=== PATIENT | male | born 1975 | race Asian ===

== ENCOUNTER 2017-02-25 13:32 | Observation (INO) | payer MEDICAID, OTHER ==
--- NOTE | 2017-02-25 13:53 | CPEKG ---
Heart Rate: 102 RR Interval: 588 P-R Interval: 168 QRSD Interval: 90 QT Interval: 360 QTC Interval: 469 P [place]: 60 QRS [place]: -52 T Wave [place]: 61 EKG Severity - ABNORMAL ECG - EKG Impression: SINUS TACHYCARDIA EKG Impression: LEFT ANTERIOR FASCICULAR BLOCK EKG Impression: CONSIDER ANTERIOR INFARCT Electronically Signed By: Yady Hadley 25-Feb-2017 14:03:44
--- NOTE | 2017-02-25 14:12 | EDPHY ---
H & P Stated Complaint: cardiac - Personal History Current Tetanus Diphtheria and Acellular Pertussis (TDAP): Unsure - Medical/Surgical History Hx Asthma: No Hx Chronic Respiratory Disease: No Hx Diabetes: Yes Hx Cardiac Disease: No Hx Renal Disease: No Hx Cirrhosis: No Hx Alcoholism: No Hx HIV/AIDS: No Hx Splenectomy or Spleen Trauma: No Other PMH: MO 2008, obesity, DM II, smoker - Social History Smoking Status: Heavy smoker Time Seen by Provider: 02/25/17 14:01 HPI/ROS: CHIEF COMPLAINT: Cough, shortness of breath HISTORY OF PRESENT ILLNESS: This patient is an obese 41 year old male with history of MO complaining of cough and shortness of breath onset two weeks ago. He was evaluated earlier today by the [facility], who referred him to the emergency department for cardiac evaluation due to their exam findings. He thought he had a respiratory infection a couple weeks ago, with a cough and chest congestion. He felt it was difficult to catch his breath and noted a productive cough with "red flecks". These red flecks resolved one week ago. He feels his cough has intensified over last couple days, and he lost his voice yesterday, prompting him to visit primary care today. He notes increased shortness of breath with exertion. He denies having a sore throat and runny nose. He denies fever, current chest discomfort, vomiting, wheezes, or other associated symptoms. He denies history of pneumonia. Of not, the patient has history of myocardial infarction nine years ago. This presented as chest pressure, shortness of breath, and a pain in his left forefinger and thumb. He is no longer taking any medications related to this event. He has no similar symptoms currently. The patient has diabetes and is a current smoker, and has personal and family history of CAD. REVIEW OF SYSTEMS: A 10 point review of systems was performed and is negative with the exception of the elements mentioned in the history of present illness. (Yady Hadley) - Medical/Surgical History PMH: Diabetes Mellitus Type II, Myocardial infarction 2007 (Yady Hadley) - Social History Additional Social History: Lives in [place]. Single. Roommate at bedside. (Yady Hadley) - Physical Exam Exam: General Appearance: Alert, no distress Eyes: Pupils equal and round, no conjunctival pallor or injection ENT, Mouth: Mucous membranes moist Neck: Normal inspection Respiratory: Lungs are clear to auscultation Cardiovascular: Regular rate and rhythm Gastrointestinal: Abdomen is soft and non- tender Neurological: A&O, nonfocal, normal gait Skin: Warm and dry, no rash Extremities: Nontender, no pedal edema Psychiatric: Mood and affect normal (Yady Hadley) Constitutional: Initial Vital Signs Temperature (C) 36.8 C 02/25/17 13:38 Heart Rate 102 H 02/25/17 13:38 Respiratory Rate 18 02/25/17 13:38 Blood Pressure 154/110 H 02/25/17 13:38 O2 Sat (%) 96 02/25/17 13:38 O2 Delivery Mode Room Air Allergies/Adverse Reactions: No Known Drug Allergies Allergy (Verified 02/25/17 13:41) Home Medications: Medication Instructions Recorded Aspirin [Aspirin 325 mg (*)] 325 mg PO DAILY PRN 02/25/17 Aspirin EC [Aspirin EC 81 mg (*)] 81 mg PO DAILY #1 tab 02/26/17 Atorvastatin Calcium [Lipitor 40 40 mg PO DAILY #30 tab 02/26/17 mg (*)] Medical Decision Making - Diagnostics EKG Interpretation: EKG interpreted by me reveals sinus tachycardia, rate 102, poor R-wave progression, no ST or T segment changes. (Yady Hadley) ED Course/Re-evaluation: This patient presents with a 3 week history of productive cough and shortness of breath, now with a hoarse voice secondary to frequent coughing. Stat EKG is unremarkable. Most likely he has either acute bronchitis or pneumonia. However, given heart rate greater than 100 and history of hemoptysis, I will check a D-dimer. Chest x-ray was ordered. EKG reveals no evidence of ischemia. D-dimer is elevated and chest x-ray reveals no evidence of pneumonia. CT pulmonary angiogram ordered to rule out pulmonary embolism. Troponin elevated ( indeterminant range). The hospitalist service was consulted for admission. Signed over to Dr. Medley to check CTA results. (Yady Hadley) Differential Diagnosis: Differential diagnosis includes though it is not limited to pneumonia, pneumothorax, pulmonary embolism, aortic dissection, pericarditis, acute coronary syndrome. (Yady Hadley) Other Provider: Care assumed from Dr. Hadley at 3:[address] reported to me by Dr. Cardozo shows patchy bilateral ground-glass infiltrates but no pulmonary embolism. Discussed with Dr. Jones after he personally evaluated the patient. He considers bacterial pneumonia unlikely, supportive care at this time. Respiratory panel ordered to check for influenza. I did not personally evaluate the patient. (Sachin Medley) - Data Points Laboratory Results: Laboratory Results 02/25/17 14:20 02/25/17 14:20 Medications Given: Discontinued Medications Albuterol/Ipratropium (Duoneb) 3 ml IH QID [facility] Stop: 08/24/17 20:59 Last Admin: 02/26/17 15:29 Dose: Not Given Aspirin Buffered (Aspirin Ec) 325 mg PO EDNOW ONE Stop: 02/25/17 16:13 Last Admin: 02/25/17 16:38 Dose: Not Given Guaifenesin (Mucinex) 1,200 mg PO BID [facility] Stop: 08/24/17 16:29 Last Admin: 02/26/17 09:04 Dose: 1,200 mg Sodium Chloride (Ns) 1,000 mls @ 0 mls/hr IV ONCE ONE PRN Reason: Wide Open Stop: 02/25/17 15:03 Last Admin: 02/25/17 15:04 Dose: 1,000 mls Insulin Human Lispro (Humalog Lispro) 0 unit SC TIDMEAL JERI PRN Reason: Protocol Stop: 08/24/17 17:59 Last Admin: 02/26/17 14:39 Dose: Not Given Departure - Departure Disposition: [facility] Acute Clinical Impression: Dyspnea on exertion, Bronchitis Condition: Fair Report Scribed for: Yady Hadley Report Scribed by: Josiane Gurrola Date of Report: 02/25/17 Time of Report: 14:12 Physician Review and Approval Statement: 02/25/17 14:12 Portions of this note were transcribed by a medical technologist chief. I personally performed a history, physical exam, medical decision making, and confirmed accuracy of information the transcribed note. (Yady Hadley)
[2017-02-25 14:32] LABS: % IMMATURE GRANULYOCYTES 0.1 % (0.0-1.1); ABSOLUTE IMMATURE GRANULOCYTES 0.01 10^3/uL (0.00-0.10); ADD DIFF? NO; ADD MORPH? NO; ADD SCAN? NO; ATYPICAL LYMPHOCYTE FLAG 40 (0-99); FRAGMENT RBC FLAG 0 (0-99); HEMATOCRIT 41.4 % (40.0-51.0); HEMOGLOBIN 14.5 g/dL (13.7-17.5); LEFT SHIFT FLG 0 (0-99); LIPEMIA HEMOLYSIS FLAG 90 (0-99); MEAN CELL HEMOGLOBIN 29.7 pg (27.9-34.1); MEAN CELL VOLUME 84.7 fL (81.5-99.8); MEAN PLATELET VOLUME 9.8 fL (8.7-11.7); PLATELET CLUMPS FLAG 0 (0-99); PLATELET COUNT 295 10^3/uL (150-400); RED BLOOD CELL COUNT 4.89 10^6/uL (4.40-6.38); RED CELL DISTRIBUTION WIDTH 12.3 % (11.5-15.2)
[2017-02-25 14:50] LABS: ANION GAP 13 mEq/L (8-16); CARBON DIOXIDE 24 mEq/l (22-31); CHLORIDE 102 mEq/L (97-110); CREATININE 0.8 mg/dL (0.7-1.3); GLOMERULAR FILTRATION RATE > 60; GLUCOSE 286 mg/dL (70-100); POTASSIUM 4.9 mEq/L (3.5-5.2); SODIUM 139 mEq/L (134-144)
[2017-02-25] MEDS ORDERED: IOPAMIDOL (ISOVUE 370) 100 ML BTL IV ONE (14:58)
[2017-02-25 15:02] LABS: TROPONIN I 0.109 ng/mL (0.000-0.034)
[2017-02-25] MEDS ORDERED: NS 1,000 ML IV ONE (15:02)
[2017-02-25] MEDS ORDERED: ONDANSETRON 4 MG/2 ML VIAL IVP PRN (16:11)
[2017-02-25] MEDS ORDERED: ONDANSETRON DISINTEGRATING 4 MG TAB PO PRN (16:11)
[2017-02-25] MEDS ORDERED: ACETAMINOPHEN 325 MG TAB PO PRN (16:11)
[2017-02-25] MEDS ORDERED: TEMAZEPAM 15 MG CAP PO PRN (16:11)
[2017-02-25] MEDS ORDERED: ASPIRIN EC 325 MG TAB PO ONE (16:12)
[2017-02-25] MEDS ORDERED: ASPIRIN 325 MG TAB PO PRN (16:13)
[2017-02-25] MEDS ORDERED: D50W 25 GM/50 ML SYR IVP PRN (16:17)
--- NOTE | 2017-02-25 17:42 | GHP ---
[f rep st] HISTORY AND PHYSICAL DATE OF ADMISSION: 02/25/2017 CHIEF COMPLAINT: Cough. HISTORY OF PRESENT ILLNESS: This is a 41-year-old man with a history of coronary artery disease, as well as an RI, who presents after being sent in from [facility] with a cough. This started abou t 2 weeks ago. He initially had some very mild hemoptysis with red streaks. He had some fevers, as well as some sweats early on in the disease course, but not for the past few days. He has been produ cing a lot of sputum. He had a little bit of chest pain when he was coughing significantly. He had an RI in 2007, at which time his symptoms were significant chest pressure radiating down his left arm . This does not feel at all like that. Other people around him are not really sick. He has not been taking really any medications since about 2010, when he tells me that his financial s ituation changed. He has not seen a activities assistant. PAST MEDICAL/SURGICAL HISTORY: 1. Diabetes. 2. Coronary artery disease, status post RI in 2007 where he received PCI. MEDICATIONS: Please see medication reconciliation. ALLERGIES: No known drug allergies. SOCIAL HISTORY: Has a roommate. He does smoke. He does not drink. FAMILY HISTORY: Reviewed and noncontributory. REVIEW OF SYSTEMS: 10-point review of systems is conducted and is negative, except per HPI. PHYSICAL EXAMINATION: VITAL SIGNS: Blood pressure 128/98, heart rate 84, respiration rate 18, satur ating 98% on room air. Temperature is 36.7. GENERAL: The patient appears mildly uncomfortable, sit ting up in bed, conversant. HEENT: Shows him to be normocephalic, atraumatic. CARDIOVASCULAR: Reg ular rate and rhythm. No murmurs, rubs, or gallops. PULMONARY: Shows him to not have any respirato ry distress. His lungs are clear to auscultation bilaterally. ABDOMEN: Soft, nontender, nondistend ed. SKIN: No rash. : No Moore. NEUROLOGIC: Alert and oriented x3. He is moving all extremiti es. PSYCHIATRIC: Normal mood and affect. LABORATORY DATA: CBC is normal. D-dimer 0.9. Basic metabolic panel shows a glucose of 286. Tropon in 0.109, BNP is 781. Influenza A and B PCR are pending. DATA: 1. I discussed this with Dr. Hadley, will admit to the PCU. 2. Preliminary report on CT angiogram shows no clot. It does show some ground-glass opacities in bi lateral lungs. 3. EKG, which I personally viewed and interpreted, shows him to be in sinus rhythm. He has Q-waves in 2, 3, and F. He has incomplete right bundle-branch. There are no ST changes. No significant T-w ave inversions. IMPRESSION AND PLAN: A 41-year-old man, history of coronary artery disease, presents with respirator y illness and mildly elevated troponin. 1. Respiratory illness: I have sent an influenza PCR. He has no white count. He is afebrile, I do not think that this represents a bacterial pneumonia. I will also send a procalcitonin. I think it is reasonable to hold on antibiotics right now, monitor him very closely. If he has influenza we wi ll start Tamiflu. If Procalcitonin comes back elevated, we will treat for presumptive bacterial pneu monia. Otherwise, he will get inhalers and Mucinex. Could consider steroids if he is not improving. 2. Elevated troponin in the setting of a history of coronary artery disease: I do suspect that this is demand. I have carefully reviewed his EKG. He does have some abnormalities, but I do not think that there are new. There are no acute ischemic changes noted. Will give him an aspirin now and patricia nd his troponins. If these are rapidly rising we will involve Cardiology. Otherwise, I have checked lipids for the morning. 3. Diabetes: He is hyperglycemic. He is not taking any medications. We will check his glucoses, a nd provide him with a sliding scale insulin. I will also order an A1c.. /[id number]/MODL
[2017-02-25] MEDS: guaiFENesin 600 MG TAB.ER PO SCH ×2 (18:31→20:28)
[2017-02-25] MEDS: INSULIN LISPRO 100 UNIT/ML SC SCH (18:32)
[2017-02-25] MEDS ORDERED: DOXYCYCLINE HYCLATE 100 MG CAP/TAB PO SCH (19:30)
[2017-02-25] MEDS: IPRATROPIUM/ALBUTEROL 3 ML DEYVIAL IH SCH (20:44)
[2017-02-26 04:51] LABS: % IMMATURE GRANULYOCYTES 0.4 % (0.0-1.1); ABSOLUTE IMMATURE GRANULOCYTES 0.03 10^3/uL (0.00-0.10); ADD DIFF? NO; ADD MORPH? NO; ADD SCAN? NO; ATYPICAL LYMPHOCYTE FLAG 30 (0-99); FRAGMENT RBC FLAG 20 (0-99); HEMATOCRIT 39.4 % (40.0-51.0); HEMOGLOBIN 13.3 g/dL (13.7-17.5); LEFT SHIFT FLG 10 (0-99); LIPEMIA HEMOLYSIS FLAG 90 (0-99); MEAN CELL HEMOGLOBIN 28.8 pg (27.9-34.1); MEAN CELL HEMOGLOBIN CONCENTR. 33.8 g/dL (32.4-36.7); MEAN CELL VOLUME 85.3 fL (81.5-99.8); MEAN PLATELET VOLUME 9.9 fL (8.7-11.7); PLATELET CLUMPS FLAG 20 (0-99); PLATELET COUNT 282 10^3/uL (150-400); RED BLOOD CELL COUNT 4.62 10^6/uL (4.40-6.38); RED CELL DISTRIBUTION WIDTH 12.4 % (11.5-15.2)
[2017-02-26 05:03] LABS: ALANINE AMINOTRANSFERASE 50 IU/L (21-72); ALBUMIN 3.5 g/dL (3.5-5.0); ALKALINE PHOSPHATASE 66 IU/L (38-126); ANION GAP 11 mEq/L (8-16); ASPARTATE AMINOTRANSFERASE 22 IU/L (17-59); BILIRUBIN,TOTAL 0.6 mg/dL (0.1-1.4); CALCIUM 8.9 mg/dL (8.5-10.4); CARBON DIOXIDE 20 mEq/l (22-31); CHLORIDE 106 mEq/L (97-110); CHOLESTEROL 198 mg/dL (140-200); CHOLESTEROL/HDL RATIO 8.61 RATIO (1.00-4.97); CREATININE 0.7 mg/dL (0.7-1.3); GLOMERULAR FILTRATION RATE > 60; GLUCOSE 241 mg/dL (70-100); HIGH DENSITY LIPOPROTEIN 23 mg/dL (40-65); LDL/HDL RATIO 5.91 RATIO (1.00-3.64); LOW DENSITY LIPOPROTEIN 136 mg/dL (70-100); NON-HIGH DENSITY LIPOPROTEIN 175 mg/dL (90-129); POTASSIUM 4.5 mEq/L (3.5-5.2); SODIUM 137 mEq/L (134-144); TOTAL PROTEIN 6.6 g/dL (6.3-8.2); TRIGLYCERIDE 196 mg/dL (40-150); VERY LOW DENSITY LIPOPROTEINS 39 mg/dL (8-25)
[2017-02-26] MEDS: IPRATROPIUM/ALBUTEROL 3 ML DEYVIAL IH SCH ×3 (06:00→15:29)
[2017-02-26] MEDS ORDERED: ASPIRIN EC 81 MG TAB PO SCH (09:00)
[2017-02-26] MEDS: INSULIN LISPRO 100 UNIT/ML SC SCH ×2 (09:04→14:39)
[2017-02-26] MEDS: guaiFENesin 600 MG TAB.ER PO SCH (09:04)
[2017-02-26] MEDS ORDERED: REGADENOSON 0.4 MG/5 ML SYR IVP ONE (12:23)
--- NOTE | 2017-02-26 13:24 | CPR ---
[f rep st] NONINVASIVE CARDIAC PROCEDURE REPORT DATE OF PROCEDURE: 02/26/2017 TEST PERFORMED: Exercise nuclear stress test. INDICATION: The patient is a 41-year-old male who presented to the hospital complaining of shortness of breath which was fairly pronounced for a few days prior to admission. He has also noted some cristina rtness of breath a few weeks prior to admission. He was diagnosed with bronchitis. His EKG was abno rmal with multiple risk factors for coronary disease including new-onset diabetes, ongoing tobacco us e, and family history of CAD. His father was diagnosed with coronary disease in his late 40s. DESCRIPTION OF PROCEDURE: Consent was obtained and the patient was placed on continuous telemetry. His resting EKG revealed normal sinus rhythm with a heart rate of 100. He has T-wave inversion in th e inferior leads, concerning for ischemia. The patient walked on the treadmill for 6 minutes. He di d complain of fairly significant shortness of breath beginning at 4 minutes of exercise. He was able to reach his target heart rate with his heart rate peaking at 144 beats per minute. He denied any c hest discomfort with exertion. He remained in normal sinus rhythm throughout the study. His T-waves improved with initial exertion and remained upright throughout the study. He had nonspecific ST-T w ave changes diffusely with exertion. His blood pressure at rest was 128/80, it peaked at 152/80, and returned to baseline within 5 minutes of recovery. PLAN: Await nuclear images. /[id number]/MODL
[2017-02-26 16:21] VITALS: BP 139/100; PULSE 102; RESP 11; TEMP 98; O2SAT 98
--- NOTE | 2017-02-26 17:15 | GCON ---
[f rep st] CONSULTATION CARDIAC CONSULTATION DATE OF CONSULTATION: 02/26/2017 CHIEF COMPLAINT: Shortness of breath and cough. HISTORY OF PRESENT ILLNESS: The patient is a 41-year-old male with a history of coronary artery dise ase and [place] with stenting in 2007. His risk factors for coronary disease were treated with medical th erapy until a few years ago, when his financial situation changed and he was unable to afford the [employer]. He felt well until approximately 2 weeks ago, when he developed a productive cough and cristina rtness of breath. His symptoms persisted and therefore, he presented to his primary care physician's office. He was found to have an abnormal EKG and referred to the hospital. His initial troponin wa s elevated at 0.1 and has remained flat throughout his hospitalization. He had a nuclear stress test which was abnormal showing a large apical and moderate inferolateral infarct with deepak-infarct ische ирина. His ejection fraction was mildly reduced at 46%. He had a pulmonary CT angiogram which was neg ative for pulmonary embolus. The patient is active, walking to the bus on a regular basis. He denies any exertional chest discomf ort or dyspnea on exertion. At the time of his [place], he presented with severe chest pressure and left arm and finger discomfort. He denies any recurrent anginal type pain. His risk factors for coronary artery disease include newly diagnosed diabetes, hyperlipidemia, ongoin g tobacco use, and family history of premature coronary artery disease. PAST MEDICAL HISTORY: Diabetes. Hyperlipidemia. Coronary artery disease with myocardial infarction and stenting in 2007. The location of the stent is unknown. FAMILY HISTORY: His father has history of coronary disease which began in his late 40s. SOCIAL HISTORY: He currently works for [employer]. He does smoke 1 pack of cigarettes a day for the past 2 0 years. MEDICATIONS ON ADMISSION: None. ALLERGIES: No known drug allergies. REVIEW OF SYSTEMS: Negative except for what is stated in the H and P. PHYSICAL EXAMINATION: GENERAL: Patient appears in no acute distress. VITAL SIGNS: Blood pressure 139/100, heart rate 102, oxygen saturation 98% on room air, afebrile. NECK: No carotid bruits or JV D present. LUNGS: Clear to auscultation. No wheezes, rhonchi, or crackles auscultated. CARDIAC: Regular rate and rhythm without any murmurs, rubs, or gallops appreciated. ABDOMEN: Soft, nontender , nondistended. Bowel sounds present. EXTREMITIES: Palpable pulses bilaterally without any evidenc e of edema. NEUROLOGIC: Nonfocal. SKIN: No obvious rashes or ecchymosis identified. PSYCHIATRIC: Mood and affect appropriate. LABORATORY: Troponin 0.107, 0.106, 0.101. Triglycerides 196, LDL 136, HDL 23. D-dimer 0.91. CBC i nitially within normal limits, now mildly reduced hemoglobin and hematocrit. DIAGNOSTIC STUDIES: Nuclear stress test showed reduced ejection fraction of 46% with inferior latera l hypokinesis. There was a large apical and moderate inferior lateral infarcts with probable ischemi a. A pulmonary CT angiogram was negative for pulmonary embolus. There are bilateral focal ground-gl ass areas suspicious for pneumonia or possibly a viral versus bacterial infection. EKG shows inferio r Q-waves as well as poor R-wave progression, and diffuse T-wave flattening. IMPRESSION: The patient is a 41-year-old male with a history of coronary disease. He was found to h ave an abnormal nuclear stress test and mildly elevated troponins. PLAN: The patient presented to the hospital with bronchitis which is currently being treated. He wa s found to have an abnormal EKG which prompted a nuclear stress test. He had fairly poor exercise to [facility] for a male of 41 years, only walking for 6 minutes. His exercise ability was compromised by his pulmonary disease. The nuclear images did show a large apical and moderate inferior lateral infa rct with deepak-infarct ischemia. His ejection fraction was also reduced at 46%. He denies any curren t symptoms of angina. His troponin was mildly elevated but flat throughout his hospitalization. I d o not think this represents acute coronary syndrome. I think he likely has some degree of coronary d isease and likely obstructive disease which should be further assessed. An angiogram was recommended today, but the patient refused intervention at this time. He has agreed to begin medical therapy for coronary disease and follow up at our office in 2 weeks to schedule an angiogram at that time. He will begin aspirin 162 mg daily. He will also be started on Lipitor 40 mg daily. His LDL is currently elevated at 136. I would like to start a beta jaron bu t given his underlying pulmonary disease, I will hold off for now. I will plan to initiate this at h is office visit. Smoking cessation was discussed today. He is also diabetic and not currently on me dical therapy. He will need aggressive management of his diabetes. He is currently scheduled to follow up with myself on March 10 at 11:45 in our office. If he dev elops chest pressure, tightness, or dyspnea on exertion prior to his office visit, he knows to procestew d to the emergency department. /[id number]/MODL
--- NOTE | 2017-02-26 20:36 | GDS ---
[f rep st] DISCHARGE SUMMARY DISCHARGE DIAGNOSES: 1. Viral pneumonia. 2. Mildly positive troponin with positive nuclear stress test. 3. History of coronary artery disease, status post stenting many years ago. HISTORY: This is a 41-year-old male who has a history of coronary artery disease. He presented with acute shortness of breath coinciding with a viral illness and had a mildly elevated troponin. HOSPITAL COURSE: Patient was admitted. Procalcitonin was normal, and thus he was not started on ant ibiotics. This was felt to be a viral process. He did have flat troponins at 0.1. Because of his h istory of coronary artery disease and abnormal troponins he underwent stress testing, which did show several large perfusion defects. The patient was counseled to undergo a heart catheterization but he did not want to do that at this time. Cardiology was consulted and they will follow with him closel y. He has been started on Lipitor and aspirin. /[id number]/MODL
[2017-02-27] MEDS ORDERED: ATORVASTATIN CALCIUM 40 MG TAB PO SCH (09:00)
== END 2017-02-26 16:50 | disposition home or self-care (01) ==
LOC: F2W 16:43
PROVIDERS: ADMIT Student in an Organized Health Care Education/Training Program; ATTEND Internal Medicine
DX: J12.9 Viral pneumonia, unspecified (principal); R79.9 Abnormal finding of blood chemistry, unspecified; R94.39 Abnormal result of other cardiovascular function study; E11.65 Type 2 diabetes mellitus with hyperglycemia; I25.10 Atherosclerotic heart disease of native coronary artery without angina pectoris; F17.210 Nicotine dependence, cigarettes, uncomplicated; I25.2 Old myocardial infarction; E66.9 Obesity, unspecified; E78.5 Hyperlipidemia, unspecified; Z95.5 Presence of coronary angioplasty implant and graft; Z82.49 Family history of ischemic heart disease and other diseases of the circulatory system
CPT/HCPCS: 71020; 71275; 78452; 93005; 93017; A9500; G0378; J1815; J2785; Q9967

== ENCOUNTER 2017-03-11 08:56 | Inpatient (IN) | payer MEDICAID ==
[2017-03-11] MEDS ORDERED: diphenhydrAMINE 25 MG CAP PO ONE (09:04)
[2017-03-11] MEDS ORDERED: NS 1,000 ML IV ONE (09:04)
[2017-03-11] MEDS ORDERED: FAMOTIDINE 20 MG TAB PO ONE (09:04)
[2017-03-11] MEDS ORDERED: DIAZEPAM 5 MG TAB PO ONE (09:04)
[2017-03-11] MEDS ORDERED: ASPIRIN EC 325 MG TAB PO ONE (09:04)
--- NOTE | 2017-03-11 09:27 | CPEKG ---
Heart Rate: 93 RR Interval: 645 P-R Interval: 164 QRSD Interval: 90 QT Interval: 368 QTC Interval: 458 P [place]: 65 QRS [place]: -60 T Wave [place]: 26 EKG Severity - ABNORMAL ECG - EKG Impression: SINUS RHYTHM EKG Impression: PROBABLE LEFT ATRIAL ABNORMALITY EKG Impression: LEFT ANTERIOR FASCICULAR BLOCK EKG Impression: POSSIBLE HYPERACUTE T WAVES SUGGESTING ANTERIOR INJURY Electronically Signed By: Vivienne Howell 11-Mar-2017 09:57:48
--- NOTE | 2017-03-11 09:35 | PDHPUP ---
History & Physical Update H&P update statement: This history and physical update is based on an assessment of the patient which was completed after admission or registration (within 24 hours), but prior to the surgery/procedure. H&P update: H&P reviewed & patient examined, no change in patient's condition since H&P completed (Pt with shortness of breath CCS and NYHA both class III, high risk stress test, DM untreated)
--- NOTE | 2017-03-11 09:36 | PDPROPOC ---
Sedation Plan of Care Sedation Plan of Care: vital signs stable, mental status noted, patient educated of risks, benefits, alternatives, patient can tolerate sedation ASA Classification: ASA 3 Planned drugs: fentanyl, midazolam (possible Etomidate) Mallampati Score: Class 3 Mallampati Reference Image: Patient passed 3-3-2 rule?: Yes
[2017-03-11 09:49] LABS: % IMMATURE GRANULYOCYTES 0.3 % (0.0-1.1); ABSOLUTE IMMATURE GRANULOCYTES 0.02 10^3/uL (0.00-0.10); ADD DIFF? NO; ADD MORPH? NO; ADD SCAN? NO; ATYPICAL LYMPHOCYTE FLAG 30 (0-99); FRAGMENT RBC FLAG 0 (0-99); HEMATOCRIT 43.1 % (40.0-51.0); HEMOGLOBIN 15.1 g/dL (13.7-17.5); LEFT SHIFT FLG 0 (0-99); LIPEMIA HEMOLYSIS FLAG 90 (0-99); MEAN CELL VOLUME 82.7 fL (81.5-99.8); MEAN PLATELET VOLUME 10.4 fL (8.7-11.7); PLATELET CLUMPS FLAG 0 (0-99); PLATELET COUNT 183 10^3/uL (150-400); RED BLOOD CELL COUNT 5.21 10^6/uL (4.40-6.38); RED CELL DISTRIBUTION WIDTH 12.7 % (11.5-15.2)
[2017-03-11 09:59] LABS: INR 0.97 (0.83-1.16); PROTIME(PATIENT) 12.8 SEC (12.0-15.0)
[2017-03-11 10:11] LABS: ANION GAP 11 mEq/L (8-16); CALCIUM 9.5 mg/dL (8.5-10.4); CARBON DIOXIDE 20 mEq/l (22-31); CHLORIDE 106 mEq/L (97-110); CHOLESTEROL 164 mg/dL (140-200); CHOLESTEROL/HDL RATIO 5.13 RATIO (1.00-4.97); CREATININE 0.8 mg/dL (0.7-1.3); GLOMERULAR FILTRATION RATE > 60; GLUCOSE 314 mg/dL (70-100); HIGH DENSITY LIPOPROTEIN 32 mg/dL (40-65); LOW DENSITY LIPOPROTEIN 96 mg/dL (70-100); MAGNESIUM 1.8 mg/dL (1.6-2.3); NON-HIGH DENSITY LIPOPROTEIN 132 mg/dL (90-129); POTASSIUM 4.2 mEq/L (3.5-5.2); SODIUM 137 mEq/L (134-144); TRIGLYCERIDE 184 mg/dL (40-150); VERY LOW DENSITY LIPOPROTEINS 36 mg/dL (8-25)
[2017-03-11] MEDS ORDERED: MIDAZOLAM 2 MG/2 ML VIAL ONE ×2 (10:57→11:50)
[2017-03-11] MEDS ORDERED: LIDOCAINE 1% 300 MG/30 ML SDV ONE (10:57)
[2017-03-11] MEDS ORDERED: fentaNYL 100 MCG/2 ML INJ ONE (10:57)
[2017-03-11] MEDS ORDERED: IOPAMIDOL (ISOVUE-370) 150 ML BTL IV ONE (10:58)
[2017-03-11] MEDS ORDERED: ONDANSETRON DISINTEGRATING 4 MG TAB PO PRN (12:25)
[2017-03-11] MEDS ORDERED: NITROGLYCERIN 0.4 MG BTL SL PRN (12:25)
[2017-03-11] MEDS ORDERED: ONDANSETRON 4 MG/2 ML VIAL IVP PRN (12:25)
[2017-03-11] MEDS ORDERED: OXYCODONE/APAP 5/325 TAB PO PRN (12:25)
[2017-03-11] MEDS ORDERED: ACETAMINOPHEN 325 MG TAB PO PRN (12:25)
[2017-03-11] MEDS ORDERED: ATROPINE SULFATE 1 MG/10 ML SYR IVP PRN (12:25)
[2017-03-11] MEDS ORDERED: NS 1,000 ML IV SCH (12:30)
[2017-03-11] MEDS ORDERED: ATROPINE SULFATE 1 MG/10 ML SYR ONE (12:33)
--- NOTE | 2017-03-11 12:37 | POSTOPPROG ---
Post Op Note Date of Operation: 03/11/17 Surgeon: James Funez Pre-op Diagnosis: ischemic cm diabetes mellitus Post-op Diagnosis: severe 3Vdisease, CAD, DM Indication: abnormal nuclear stress test Procedure: RHC, LHC LVG AND COR ANGIO Findings: PLEASE DICTATED REPORT Inf/Abcess present in the surg proc area at time of surgery?: No Depth: Superfical (Skin SQ) Complications: NONE
--- NOTE | 2017-03-11 12:41 | PDDXCAT ---
Diagnostic Cath Note - . Date: 03/11/17 Armor Senior Sergeant: Dee Dee Indication: High-risk criteria on noninvasive testing (choose option below) High-risk criteria on non-invasive testing: stress-induced moderate-size multiple perfusion defects - Procedure Access: right groin Procedure: left heart catheterization, coronary angiography, left ventriculogram , right heart catheterization - Materials Left Heart Cath size: 6F Left Heart Cath materials: standard multipack (JL4, JR4, pigtail) Right Heart Cath size: 7F Right Heart Cath materials: PWP catheter - Findings-Left Heart Catheterization LM: 8MM SUMAN III IN SIZE TRIFURCATES IN LAD AND RAMUS CIRCUFLEX SYSTEM LAD: 2.5mm IN SIZE. 100% OCCLUDED AFTER THE FIRST MAJOR DIAGONAL WITH EVIDENCE OF WEAK LEFT TO LEFT COLLATERALS. LCX: 100% OCCLUDED SUMAN 0 FLOW. PREVIOUSLY STENTED THE DISTAL CIRCUMFLEX OBTUSE MARGINAL FILLS VIA WEAK LEFT TO LEFT COLLATERAL RCA: 2.5mm in size and is dominant and gives rise to posterior descending and posteriolateral ventricular branch. There is proximal and ostial and proximal obstruction. Maximal luminal obstruction is 85%. Gives rise to right to left collaterals which weakly fill the LAD. Ramus: SUMAN III 2.5mm IN SIZE 85-90% PROXIMAL OBSTRUCTION EDP: LV EDP was 28 mmHg. LVEF: EF is 45% with basal inferior and mid-anterior wall hypokinesis, severe and 3 to 4+ mitral regurgitation is present under pressurized injection. Wall motion: See above. - Findings-Right Heart Catheterization RA: Pressure is 15/13 mmHg. RV: Pressure is 56/10 mmHg with EDP of 13 mmHg. PA: Pressure is 59/31 mmHg with a mean of 43 mmHg. PAOP: Mean pressure 21 mmHg. A and V waves are both 23 mmHg. AO: Pressure 116/78 mmHg. Mean 92 mmHg. CO: 5.5 l/min CI: 2.58 l/min/m2 Complications: None. Estimated blood loss: <50ml Closure method: manual pressure Assessment: The patient is a diabetic with severe [place] vessel coronary disease and reduced EF and will benefit from hospital admission for CV surgical consultation for bypass surgery with NATH to the LAD and rSVG to the right coronary artery, circ/obtuse marginal, ramus intermedius, and possibly first diagonal vessels. Echocardiogram to evaluate mitral valve regurgitation will be necessary given the findings on LVG and RHC. Plan: ABOVE. PLEASE SEE DIAGRAM IN CHART... JJD Patient Problems: Problems Problem Status Onset Bronchitis Acute Dyspnea on exertion Acute
[2017-03-11 14:12] LABS: MAGNESIUM 1.8 mg/dL (1.6-2.3)
[2017-03-11 14:23] LABS: TROPONIN I < 0.012 ng/mL (0.000-0.034)
[2017-03-11] MEDS ORDERED: D50W 25 GM/50 ML SYR IVP PRN (16:38)
[2017-03-11] MEDS: INSULIN GLARGINE 100 UNITS/ML SYRINGE SC SCH ×2 (17:42→20:59)
[2017-03-11] MEDS: INSULIN LISPRO 100 UNIT/ML SC SCH (18:23)
[2017-03-11 18:42] LABS: HEMOGLOBIN A1C 11.2 % (4.0-6.0)
--- NOTE | 2017-03-11 21:42 | GCON ---
[f rep st] CONSULTATION DATE OF CONSULTATION: 03/11/2017 DIAGNOSIS: Severe coronary artery disease. HISTORY OF PRESENT ILLNESS: A 41-year-old male with a history of myocardial infarction and a circumf ny stent in 2007. The patient has been lost to followup and he stopped all his medications. The pa nini does have a history of hypertension and noninsulin dependent diabetes mellitus. The patient pr esented now with some shortness of breath and he saw Dr. Funez and cardiac catheterization was perfo rmed. Catheterization shows an ejection fraction of 45% with moderate mitral insufficiency. His LAD is occluded. The circumflex is occluded, and his right coronary artery has a proximal 85% stenosis. He is now referred for surgery. The patient did have right heart cath. At the time of his catheterization, his pulmonary artery pres sure was 59/31. REVIEW OF SYSTEMS: The patient does have noninsulin dependent diabetes mellitus, hypertension, both of which he stopped all his medicines because of some difficult personal times. He has a history of a myocardial infarction in 2007. ALLERGIES: None know. SOCIAL HISTORY: He was a smoker. He just now is quitting. He does tech support. PHYSICAL EXAMINATION: VITAL SIGNS: Stable. GENERAL APPEARANCE: He is a mildly-obese male in no ac [place] distress. HEENT: Unremarkable. NECK: Without masses or bruits. LUNGS: Clear. HEART: Regula r rate and rhythm without murmur, S3 or S4. ABDOMEN: Benign. EXTREMITIES: He does have intact per ipheral pulses. He is right handed. Left hand Dandy test I believe is okay, although I am going to reconfirm this with ultrasound. ASSESSMENT: A 41-year-old with severe 3-vessel coronary artery disease with mild decreased left vent ricular function and some mitral insufficiency. PLAN: For at least 3 vessels, possibly 4-vessel, bypass. Will plan on using bilateral skeletonized internal mammary arteries assuming we can get his sugars under better control by Thursday. The possibi lity exists of using a left radial artery and will check this with ultrasound. The big question now will be whether he needs to have a mitral valve repair and will need to get an echocardiogram for thi s. I have talked about all these issues with the patient and tentatively surgery is scheduled for Fr michael. /[id number]/MODL
--- NOTE | 2017-03-11 21:47 | GCON ---
[f rep st] CONSULTATION DATE OF CONSULTATION: 03/11/2017 I was asked to see the patient by Dr. James Funez to assist in the management of diabetes in this pa tient with coronary artery disease, awaiting bypass surgery. HISTORY OF PRESENT ILLNESS: The patient is a 41-year-old gentleman with a history of coronary artery disease and uncontrolled diabetes, who was admitted to the hospital here about a week ago with short ness of breath. At that time, he had a weakly positive troponin of about 0.1. He had a large apical moderate inferolateral infarct with inferolateral hypokinesis and associated ischemia. He underwent cardiac catheterization today, which demonstrated 3-vessel disease. I refer the reader to Dr. Jack brown's procedure note for further details. He is awaiting bypass surgery this coming Thursday, which is 5 days from now. The patient states that he was diagnosed with diabetes after his first VT 8 years ago. Intercurrent depression led to ceasing taking metformin and he never started again. He does not check blood sugar s at home. He is a needle-phobe. He does not have polyuria or polydipsia. He has not had weight lo ss. He does not have numbness or tingling in his lower extremities. REVIEW OF SYSTEMS: A complete 10-point review of systems was conducted, negative except as in the HP I. PAST MEDICAL HISTORY: 1. Diabetes. 2. Coronary artery disease. 3. Hyperlipidemia. ALLERGIES: No known drug allergies. MEDICATIONS: At home are aspirin and atorvastatin. SOCIAL HISTORY: Works with computers. He has been a smoker. It sounds like he has decided to quit. Does not drink alcohol. FAMILY HISTORY: Notable for diabetes. PHYSICAL EXAMINATION: VITAL SIGNS: Temp 37.1, blood pressure 134/97, pulse 92, breathing 14 times a minute, 94% on room air. GENERAL: No acute distress. Sclerae anicteric. Oropharynx clear. Mucou s membranes moist. NECK: Supple without lymphadenopathy or JVD. LUNGS: Clear to auscultation bila terally. HEART: S1, S2 without murmurs. ABDOMEN: Soft, nontender, nondistended. LOWER EXTREMITIE S: No edema. Calves nontender. SKIN: Without rash. NEUROLOGIC: Nonfocal. LABORATORY DATA: White count 6.8, hematocrit 43, platelets are 183,000. Coags normal. Sodium 137, potassium 4.2, chloride 106, bicarb 20, BUN 14, creatinine 0.8, glucose 314. Troponin less than 0.01 2. BNP is just 74. His LDL is 96, it was 136 a week ago. His hemoglobin A1c 2 weeks ago with 11. EKG today, interpreted by me, shows sinus at 93 with normal axis and intervals. There are inferior Q -waves. No active ST or T-wave changes. I will discuss the case with Dr. Funez. ASSESSMENT/PLAN: A 41-year-old gentle with uncontrolled diabetes, coronary artery disease, awaiting coronary artery bypass graft. 1. Diabetes. Patient has uncontrolled diabetes. Hemoglobin A1c of 11. The likelihood of success w ith pills is low and he is a candidate for insulin therapy. The patient has reluctantly agreed to th is. I will start him on Lantus 20 units in the evening with lispro sliding scale. I suspect he will need about 5 or 6 units per meal, as well as supplemental insulin. We will also check a urine micro albumin. I see he is already on a statin. He is almost certainly a candidate for an angiotensin con verting enzyme inhibitor. 2. Coronary artery disease. Bypass is coming. 3. Mitral regurgitation. Echocardiogram is pending. 4. Hyperlipidemia, continue statin as you are. 5. Disposition. Thank you this consult. Hospital Medicine will follow. /[id number]/MODL
[2017-03-12] MEDS: INSULIN LISPRO 100 UNIT/ML SC SCH ×2 (09:01→13:33)
--- NOTE | 2017-03-12 09:27 | ECHO ---
[email or web address] [address] [address] Main: [phone] Fax: Transthoracic Echocardiogram Name: SWETA MALIN MR#: [id number] Study Date: 03/12/2017 Study Time: 07:21 AM Date of : 1975 Age: 41 year(s) Height: 172.7 cm (68 in.) Weight: 99.79 kg (220 lb.) BSA: 2.13 m2 Gender: Male Examination: Echo Indication: Image Quality: Adequate Contrast: Requested by: Josias Rust BP: 125 mmHg/85 mmHg Heart Rate: Rhythm: Normal sinus rhythm Indication: Procedure Staff Ordering Physician: BALJINDER Endoscope Technician: Kylee Alvarez Reading Physician: Conclusions: ? Normal size left ventricle. ? Mildly reduced systolic LV function (EF 53 %). ? The apical septal ? Grade 1 diastolic dysfunction (abnormal relaxation). ? The mitral valve is normal in appearance. ? Moderate to severe mitral regurgitation. ? The mitral regurgitation is eccentric and most likely due to abnormal papillary muscle secondary to inferolateral MD. ? Cannot rule out bicuspid aortic valve. ? There is no aortic valve regurgitation. There is no aortic stenosis. CRISTOBAL is recommended at time of planned CABG and if moderately severe mitral regurgitation is confirmed then I would recommend mitral valve annuloplasty at the time of surgery if the valve can be safely repaired via that technique. Measurements: Chambers Valvular Assessment AV/MV Valvular Assessment TV/PV Normal Normal Normal Name Value Range Name Value Range Name Value Range Ao Theresa (MM): 2.9 cm (2.2 cm-3.7 AV Vmax: 1.26 m/s (1 m/s-1.7 PV Vmax: 0.62 cm/s (0.6 m/s-0.9 cm) m/s) m/s) IVSd (2D): 1.4 cm (0.6 cm-1.1 AV maxP mmHg ( - ) PV PGmax: 2 mmHg ( - ) cm) LVOT Vmax: 0.93 m/s (0.7 m/s-1.1 LVDd (2D): 5.2 cm (4.2 cm-5.9 m/s) cm) FLOWER (Vmax): 2.3 cm? ( - ) LVDs (2D): 4.0 cm (2.1 cm-4 MV E Vmax: 1.29 cm/s ( - ) cm) MV A Vmax: 0.75 cm/s ( - ) MV E/A: 1.72 ( - ) Patient: SWETA MALIN Study Date: 03/12/2017 Page 1 of 3 07:21 AM LVPWd (2D): 0.7 cm (0.6 cm-1 MVA (Vmax): 2.6 ( - ) cm) LVOTd 2.0 cm 2.0 cm mm LVEF (BP): 53 % (>=55 %) RVDd(2D): 3.0 cm (1.9 cm-3.8 cmmm) Continued Measurements: Chambers Valvular Assessment AV/MV Name Value Name Value LA Area: 23.8 cm? MV Annulus: 3.0 cm LA Volume: 84 ml MV DecTime: 208 LA Volume Index: 39.4 ml/m? MV E/E' Septal: 21.10 RA Area: 12.0 cm? MV E/E' Lateral: 19.10 MR ERO: 0.3 MR PISA radius: 8 MR Reg. Volume: 47 MR Reg. Fraction: 32 Additional Vessels Name Value Ao Ascendin.2 cm Findings: Left Ventricle: Normal size left ventricle. Mildly reduced systolic LV function (EF 53 %). The apical septal segment is hypokinetic. The basal inferolateral and mid inferolateral wall segments are akinetic. All remaining scored wall segments are normal. Grade 1 diastolic dysfunction (abnormal relaxation). Right Ventricle: Normal size right ventricle. Normal RV function. Left Atrium: The left atrium is mildly dilated. Right Atrium: The right atrium is normal in size. Mitral Valve: The mitral valve is normal in appearance. Moderate to severe mitral regurgitation. The mitral regurgitation is eccentric and most likely due to abnormal papillary muscle secondary to inferolateral MD. Aortic Valve: Cannot rule out bicuspid aortic valve. There is no aortic valve regurgitation. Tricuspid Valve: The tricuspid valve appears normal. There is no tricuspid valve regurgitation. Pulmonary artery pressure is not obtained due to inadequate TR jet. Pulmonic Valve: The pulmonic valve is normal in appearance. Great Vessels: The aorta is normal. Pericardium: pericardial effusion vs fat pad. (No Signature Object) Wall Motion Scores Patient: SWETA MALIN Study Date: 03/12/2017 Page 2 of 3 07:21 AM l1n -1 - Not Scored, 0 - Unknown, 1 - Normal or hyperkinesia, 2 - Hypokinesia, 3 - Akinesia, 4 - Dyskinesia, 5 - Aneurysm Patient: SWETA MALIN Study Date: 03/12/2017 Page 3 of 3 07:21 AM [id number]
[2017-03-12] MEDS: METOPROLOL TARTRATE 25 MG TAB PO SCH ×2 (11:08→20:35)
[2017-03-12] MEDS ORDERED: ASPIRIN EC 81 MG TAB PO SCH (12:00)
[2017-03-12] MEDS ORDERED: ATORVASTATIN CALCIUM 40 MG TAB PO SCH (12:00)
--- NOTE | 2017-03-12 15:09 | ASMTCMCOM ---
CM Note CM Note Notes: Chart reviewed, pt is a 41 y/o man admitted w/ ischemic cardiomyopathy. Pt will have an open heart tomorrow. Pt will most likely be transferred to the ICU today for insulin drip. Pt will most likely discharge w/ cardiac rehab and independent when medically stable. CM available if there are needs. Date Signed: 03/12/2017 03:08 PM Electronically Signed By:LEO Maurice
--- NOTE | 2017-03-12 17:17 | HOSPPROG ---
Hospitalist Progress Note Assessment/Plan: # DM uncontrolled - BS remain high this am and overnight in 200's - has received 24 units insulin -with goal BS < 180 pre-op agree that insulin gtt more effective - insulin gtt - holding lantus and other SSI # CAD - pt denies CP - to OR for CABG tomorrow with CT surgery TELE (personally reviewed and interpreted) sinus 80's- oxygen saturations 94 % on RA - cont ASA, statin, beta-jaron # HTN - continue current regimen per CT surgery # proph - no lovenox currently # diet- cardiac then NPO for OR #dispo - > 2MN as needs surgery and recovery I have discussed the case with Ct surgery - will start insulin gtt Subjective: denies cp or sob Objective: Vital Signs Temp Pulse Resp BP Pulse Ox 36.7 C 86 15 120/83 H 99 03/12/17 15:30 03/12/17 15:30 03/12/17 15:30 03/12/17 15:30 03/12/17 15:30 Laboratory Results 03/11/17 09:37 03/11/17 09:37 03/11/17 03/12/17 03/13/17 05:59 05:59 05:59 Intake Total 1276 1500 Output Total 500 Balance 776 1500 PT 12.8 SEC (12.0-15.0) 03/11/17 09:37 INR 0.97 (0.83-1.16) 03/11/17 09:37 - Physical Exam Constitutional: appears nourished Eyes: anicteric sclera Ears, Nose, Mouth, Throat: moist mucous membranes Cardiovascular: regular rate and rhythym Respiratory: no respiratory distress Skin: warm Musculoskeletal: No asymmetric calves Neurologic: AAOx3 Lymph, Heme, Immunologic: no cervical LAD ICD10 Worksheet Patient Problems: Problems Problem Status Onset Bronchitis Acute Dyspnea on exertion Acute
[2017-03-12] MEDS: INSULIN REGULAR HUMAN 100 UNIT in NS 100 ML IV SCH ×2 (17:49→22:03)
[2017-03-12] MEDS: SENNOSIDES/DOCUSATE SODIUM TAB PO SCH (20:29)
[2017-03-12] MEDS: MUPIROCIN 2% 22 GM OINT NS SCH (20:35)
[2017-03-12] MEDS: INSULIN GLARGINE 100 UNITS/ML SYRINGE SC SCH (20:37)
[2017-03-12] MEDS ORDERED: CHLORHEXIDINE GLUC HIBICLENS 118 ML BTL TP SCH (21:00)
[2017-03-13] MEDS ORDERED: LIDOCAINE 2% 100 MG/5 ML SYR ONE (06:16)
[2017-03-13] MEDS ORDERED: CALCIUM CHLORIDE 1 GM/10 ML INJ ONE (06:16)
[2017-03-13] MEDS ORDERED: MILRINONE/DEXTROSE/100 ML BAG IV ONE (06:16)
[2017-03-13] MEDS ORDERED: PROTAMINE SULFATE 50 MG/5 ML VIAL IVP ONE (06:16)
[2017-03-13] MEDS ORDERED: ALBUMIN 5% 250 ML BOTTLE IV ONE (06:16)
[2017-03-13] MEDS ORDERED: POTASSIUM Cl (KCl) 20 MEQ/50 ML BAG IV ONE (06:16)
[2017-03-13] MEDS ORDERED: AMINOCAPROIC ACID 5 GM/20 ML VIAL ONE (06:16)
[2017-03-13] MEDS ORDERED: NA BICARBONATE 50 MEQ/50 ML VIAL ONE (06:16)
[2017-03-13] MEDS ORDERED: DOPamine/DEXTROSE/250 ML BAG IV ONE (06:17)
[2017-03-13] MEDS ORDERED: MAGNESIUM SULFATE 1 GM/2 ML VIAL ONE (06:17)
[2017-03-13] MEDS ORDERED: AMIODARONE HCL 150 MG/3 ML VIAL ONE (06:17)
[2017-03-13] MEDS ORDERED: CITRATE DEXTROSE SOLN 500 ML BAG ONE ×2 (06:17→12:35)
[2017-03-13] MEDS ORDERED: HEPARIN 10,000 UNIT/10 ML MDV ONE ×2 (06:17→11:15)
[2017-03-13] MEDS ORDERED: ADENOSINE 6 MG/2 ML VIAL ONE (06:17)
[2017-03-13] MEDS ORDERED: methylPREDNISolone SOD SUCC 1 GM/8 ML VIAL ONE (06:17)
[2017-03-13] MEDS ORDERED: niCARdipine/NACL/200 ML BAG IV ONE (06:17)
[2017-03-13] MEDS ORDERED: ceFAZolin 1 GM VIAL ONE (06:18)
[2017-03-13] MEDS ORDERED: LORazepam 2 MG/ML INJ IVP ONE ×2 (07:40→10:15)
--- NOTE | 2017-03-13 08:21 | PDHPUP ---
History & Physical Update H&P update statement: This history and physical update is based on an assessment of the patient which was completed after admission or registration (within 24 hours), but prior to the surgery/procedure. H&P update: H&P reviewed & patient examined H&P changes: Transferred to the ICU for insulin drip management. Feels anxious this morning.
[2017-03-13] MEDS ORDERED: ceFAZolin 2 GM/DEXTROSE 100 ML IV ONE (09:00)
[2017-03-13] MEDS ORDERED: HEP MISC ONE (09:00)
[2017-03-13] MEDS ORDERED: CITRATE DEXTROSE SOLN 500 ML BAG MISC ONE (09:00)
[2017-03-13] MEDS ORDERED: NITRO MISC ONE (09:00)
[2017-03-13] MEDS ORDERED: SOD BICARB MISC ONE (09:00)
[2017-03-13] MEDS ORDERED: niCARdipine/NACL 200 ML IV ONE (09:00)
[2017-03-13] MEDS ORDERED: NOREPINEPHRINE BITARTRATE 16 MG in NS 250 ML IV ONE (09:00)
[2017-03-13] MEDS ORDERED: VERAPAMIL 5 MG, NITROGLYCERIN 2.5 MG, HEPARIN 500 UNIT, SODIUM BICARBONATE 0.2 MEQ in L... MISC ONE (09:00)
[2017-03-13] MEDS ORDERED: NS 1,000 ML IV ONE (09:00)
[2017-03-13] MEDS ORDERED: INSULIN REGULAR HUMAN 100 UNIT in NS 100 ML IV ONE (09:00)
[2017-03-13] MEDS ORDERED: PHENYLEPHRINE HCL 50 MG in NS 250 ML IV ONE (09:00)
[2017-03-13] MEDS ORDERED: [UNRECOGNIZED DRUG - OTHER] MISC ONE (09:00)
[2017-03-13] MEDS ORDERED: SODIUM BICARBONATE 20 MEQ, LIDOCAINE 1% 10 ML in NORMOSOL-R 1,000 ML MISC ONE (09:00)
[2017-03-13] MEDS ORDERED: LR MISC ONE (09:00)
[2017-03-13] MEDS ORDERED: PAPAVERINE HCL 60 MG in NS 100 ML IV ONE (09:00)
[2017-03-13] MEDS ORDERED: AMINOCAPROIC ACID 5 GM/20 ML VIAL IV ONE (09:00)
[2017-03-13] MEDS ORDERED: MANNITOL 20% 50 GM/250 ML BAG IV ONE (09:00)
--- NOTE | 2017-03-13 10:05 | HOSPPROG ---
Hospitalist Progress Note Assessment/Plan: 41 yo M w uncontrolled dm, cad and plans fo cabg today DM uncontrolled - received lantus 20 overnight blood sugars > goal but much improved insulin gtt in perioperative period suggest increasing lantus to 26 units hs when restarting SC insulin also, rec scheduled mealtime lispro- start 6 ac CAD - pt denies CP - to OR for CABG today with CT surgery - cont ASA, statin, beta-jaron HTN - continue current regimen per CT surgery proph - no lovenox currently diet- cardiac then NPO for OR dispo - > 2MN as needs surgery and recovery Subjective: case d/w dr kellogg. insulin gtt started overnight Objective: Vital Signs Temp Pulse Resp BP Pulse Ox 36.7 C 73 16 118/89 H 96 03/13/17 04:00 03/13/17 04:00 03/13/17 04:00 03/13/17 04:00 03/13/17 04:00 Laboratory Results 03/11/17 09:37 03/11/17 09:37 03/12/17 03/13/17 03/14/17 05:59 05:59 05:59 Intake Total 1276 1863.2 Output Total 500 Balance 776 1863.2 PT 12.8 SEC (12.0-15.0) 03/11/17 09:37 INR 0.97 (0.83-1.16) 03/11/17 09:37 - Physical Exam Constitutional: no apparent distress, appears nourished Eyes: PERRL, anicteric sclera Ears, Nose, Mouth, Throat: moist mucous membranes, hearing normal Cardiovascular: regular rate and rhythym, no murmur, rub, or gallop Respiratory: no respiratory distress, no rales or rhonchi Gastrointestinal: normoactive bowel sounds, soft, non-tender abdomen Genitourinary: no bladder fullness, No richardson in urethra Skin: warm, normal color Musculoskeletal: full muscle strength Neurologic: AAOx3 ICD10 Worksheet Patient Problems: Problems Problem Status Onset Bronchitis Acute Dyspnea on exertion Acute
[2017-03-13] MEDS ORDERED: SUFentanil 250 MCG/5 ML AMP ONE (10:56)
[2017-03-13] MEDS ORDERED: PROPOFOL/EMULSION 500 MG/50 ML BOTTLE IV ONE ×3 (10:56→15:37)
[2017-03-13] MEDS ORDERED: ROCURONIUM 100 MG/10 ML VIAL ONE ×2 (10:59→12:53)
--- NOTE | 2017-03-13 11:01 | PDANEPAE ---
ANE History of Present Illness 41 yo for cabg, mvr cad severe mr s/p ptca, iwmi htn dm ef 45% ANE Past Medical History - Cardiovascular History Hx Hypertension: No Hx Chest Pain: Yes Hx Coronary Artery / Peripheral Vascular Disease: Yes Hx CHF / Valvular Disease: Yes - Pulmonary History Hx Oxygen in Use at Home: No Hx Sleep Apnea: Yes - Endocrine History Hx Diabetes: Yes ANE Review of Systems Review of Systems: ANE Patient History - Allergies Allergies/Adverse Reactions: No Known Drug Allergies Allergy (Verified 02/25/17 13:41) - Home Medications Home medications: home medication list seen and reviewed Home Medications: Aspirin [Aspirin 325 mg (*)] 325 mg PO DAILY PRN 02/25/17 [Last Taken 03/11/17] Aspirin EC [Aspirin EC 81 mg (*)] 81 mg PO DAILY@12 03/11/17 [Last Taken ] Atorvastatin Calcium [Lipitor 40 mg (*)] 40 mg PO DAILY@12 03/11/17 [Last Taken 03/10/17] - Anes Hx Anes Hx: no prior problems - Smoking Hx Smoking Status: Heavy smoker ANE Labs/Vital Signs - Labs Result Diagrams: 03/11/17 09:37 03/11/17 09:37 - Vital Signs Blood Pressure: 118/89 Heart Rate: 73 Respiratory Rate: 16 O2 Sat (%): 96 Height: 5 ft 8.11 in Weight: 102.512 kg ANE Physical Exam - Airway Neck exam: FROM Mallampati Score: Class 2 Mouth exam: poor dentition - Pulmonary Pulmonary: no respiratory distress - Cardiovascular Cardiovascular: regular rate and rhythym - ASA Status ASA Status: IV ANE Anesthesia Plan Anesthesia Plan: general endotracheal anesthesia Lines/Monitors: arterial line, central line, CRISTOBAL
[2017-03-13] MEDS ORDERED: CEFAZOLIN 2 GM/DEXTROSE/100 ML BAG IV ONE (11:33)
[2017-03-13] MEDS ORDERED: MINERAL OIL 10 ML VIAL ONE (12:52)
[2017-03-13] MEDS ORDERED: DEXAMETHASONE 4 MG/ML VIAL ONE (12:53)
[2017-03-13] MEDS ORDERED: PHENYLEPHRINE HCL 100 MCG/ML SYR ONE (12:53)
[2017-03-13] MEDS ORDERED: MEPERIDINE 25 MG/ML SYR IVP PRN (17:20)
[2017-03-13] MEDS ORDERED: PANTOPRAZOLE SODIUM 40 MG in NS 100 ML IV ONE (17:20)
[2017-03-13] MEDS ORDERED: POTASSIUM Cl (KCl) 50 ML IV PRN (17:20)
[2017-03-13] MEDS ORDERED: METOCLOPRAMIDE 10 MG/2 ML VIAL IVP PRN (17:20)
[2017-03-13] MEDS ORDERED: MAGNESIUM HYDROXIDE 30 ML UDCUP PO PRN (17:20)
[2017-03-13] MEDS ORDERED: BISACODYL 10 MG SUPP PR PRN (17:20)
[2017-03-13] MEDS ORDERED: ACETAMINOPHEN 325 MG TAB PO PRN (17:20)
[2017-03-13] MEDS ORDERED: SODIUM CL NASAL 45 ML BTL EACHNARE PRN (17:20)
[2017-03-13] MEDS ORDERED: MAGNESIUM SULF 2 GM/WATER 50 ML IV ONE (17:20)
[2017-03-13] MEDS ORDERED: POLYETHYLENE GLYCOL 3350 17 GM PKT PO PRN (17:20)
[2017-03-13] MEDS ORDERED: ACETAMINOPHEN 650 MG SUPP PR PRN (17:20)
[2017-03-13] MEDS ORDERED: LACTULOSE 20 GM/30 ML UDCUP PO PRN (17:20)
--- NOTE | 2017-03-13 17:20 | POSTOPPROG ---
Post Op Note Date of Operation: 03/13/17 Surgeon: Dayday Yan Nurse Companion: Barrera HUERTA Anesthesia: GET(General Endotracheal) Pre-op Diagnosis: Coronary artery disease, mitral regurgitation Post-op Diagnosis: Same Indication: CAD, MR Procedure: CABGx4 w/ SVG-Trif, SVG-OM,NATH-LAD, IVA-RCA, MV repair w/ 32mm ring Findings: CAD, severe MR Inf/Abcess present in the surg proc area at time of surgery?: No EBL: Not measured Complications: None
[2017-03-13] MEDS ORDERED: NS 1,000 ML IV SCH (17:30)
[2017-03-13] MEDS ORDERED: INSULIN REGULAR HUMAN 100 UNIT in NS 100 ML IV SCH (17:30)
[2017-03-13] MEDS: MUPIROCIN 2% 22 GM OINT NS SCH ×2 (18:54→21:07)
[2017-03-13] MEDS: SENNOSIDES/DOCUSATE SODIUM TAB PO SCH ×2 (18:54→21:07)
[2017-03-13] MEDS: fentaNYL 100 MCG/2 ML INJ IVP PRN ×2 (19:07→22:43)
[2017-03-13] MEDS: ALBUMIN 5% 250 ML IV PRN ×2 (19:17→20:20)
[2017-03-13] MEDS: INSULIN REGULAR HUMAN 100 UNIT in NS 100 ML IV SCH (20:00)
[2017-03-13 20:27] LABS: CALCULATED OXYGEN SATURATION 98 % (92-95)
--- NOTE | 2017-03-13 20:30 | POSTANESTH ---
Post Anesthetic Evaluation Cardiovascular Status: Normal, Stable Respiratory Status: Other, See Comment Level of Consciousness/Mental Status: Unconscious Nausea/Vomiting Control: Adequate, Prn Tx Ordered (sedated, on vent. No apparent comp geta)
[2017-03-13] MEDS: ceFAZolin 2 GM/DEXTROSE 100 ML IV SCH (21:08)
[2017-03-13 21:12] LABS: CALCULATED OXYGEN SATURATION 98 % (92-95); O2 CONCENTRATIION 40 % (0-100)
[2017-03-14] MEDS: fentaNYL 100 MCG/2 ML INJ IVP PRN ×2 (00:29→02:51)
[2017-03-14] MEDS: HYDROCODONE/APAP 5/325 TAB PO PRN ×2 (01:28→05:42)
--- NOTE | 2017-03-14 03:04 | GOP ---
[f rep st] OPERATIVE REPORT DATE OF OPERATION: 03/13/2017 SURGEON: Dayday Yan MD MECHANICAL SYSTEMS ENGINEER: Josias Rust PA-C PREOPERATIVE DIAGNOSIS: Severe 3-vessel coronary artery disease and myocardial infarction. POSTOPERATIVE DIAGNOSIS: Severe 3-vessel coronary artery disease and myocardial infarction. PROCEDURE PERFORMED: 1. Four-vessel coronary artery bypass with saphenous vein grafts to the trifurcation in the obtuse m arginal, skeletonized right internal mammary artery bypass to the right coronary artery, and skeleton ized left internal mammary artery bypass to the left anterior descending artery. 2. Mitral valve repair with 32 mm Physio annuloplasty ring and closure of left atrial appendage. FINDINGS: Saphenous vein from the left thigh was excellent. The sternum was normal. The aorta was normal. The LAD was about 2 to 2.5 mm with mild disease. The trifurcation was 1.75 mm and of good q uality. Obtuse marginal was 2.5 mm with mild disease, and the right coronary artery was 3 mm with mi ld disease. INDICATIONS: This is a 41-year-old male who has a history of a myocardial infarction and a stent in 2007. Patient has diabetes and hypertension, has been not taking any of his medicines for many years . He presented with shortness of breath and catheterization showed occlusion of the LAD and the circ umflex vessel with high proximal right coronary artery stenosis. LV-gram and echocardiogram showed i nferior wall akinesis with severe mitral insufficiency. Surgery was recommended. DESCRIPTION OF PROCEDURE: Consent was signed, patient was taken to the operating room where central line and arterial lines were inserted. General endotracheal anesthesia was administered. CRISTOBAL was pe rformed, and this showed a central severe mitral insufficiency jet. The patient was prepped and drap ed. Saphenous vein was harvested with an endovascular harvesting system. Venous tenotomy was perfor med. The right and left internal mammary arteries were mobilized, skeletonized, grafts. Pursestring s were placed. Patient was heparinized, cannulated, placed on bypass. Body temperature was allowed to drift. The aorta was crossclamped, cold potassium-containing blood cardioplegia was infused in the aortic ro ot and reinfused retrograde through the coronary sinus at intervals. Saphenous vein grafts were plac ed at the trifurcation in the obtuse marginal branch. A left atriotomy was performed. Table-mounted retractor was placed, and excellent exposure was obtained. Left atrial appendage was closed with do uble layer of 3-0 Prolene suture. It appeared to be mainly annular dilatation with no true leaflet r estriction. Two-0 Ethibond sutures were placed around the mitral annulus, and a 32 mm Physio annulop lasty ring was sutured into place. Saline was injected into the ventricular, and the valve was compe tent. The atriotomy was closed with 3-0 Prolene suture, deairing the heart prior to completing the closure. The skeletonized right internal mammary artery was anastomosed to the fairly proximal right coronar y artery, the skeletonized left internal mammary artery to the mid left anterior descending artery. Both pericardiums were incised, and the proximal ends of the vein grafts were anastomosed to puncture holes on the ascending aorta, deairing the heart prior to completing the suture line. The ascending aorta was suctioned and vented. Cross-clamp was removed. The body temperature was rewarmed. Atria l and ventricular pacemaker wires were placed. The heart initially was DDD paced. He then went into a good sinus rhythm. One gram of calcium chloride was administered. Ventilation was started. The patient was then easily weaned off cardiopulmonary bypass. On CRISTOBAL, there was no change in left ventricular function. There was trivial mitral insufficiency. P rotamine sulfate was administered. Hemostasis was obtained. The patient was decannulated. Mediasti nal fat was closed. Right angle chest tubes were placed in the right chest, straight tube in the lef t chest and straight tube in the mediastinum. The sternum was closed with 3 stainless steel wires an d 3 ZIPFIX, and the remainder of the wounds were closed. COMPLICATIONS: None. POSTOPERATIVE CONDITION: Stable. /[id number]/MODL
[2017-03-14 05:00] LABS: % IMMATURE GRANULYOCYTES 0.4 % (0.0-1.1); ABSOLUTE IMMATURE GRANULOCYTES 0.04 10^3/uL (0.00-0.10); ADD DIFF? NO; ADD MORPH? NO; ADD SCAN? NO; ATYPICAL LYMPHOCYTE FLAG 20 (0-99); FRAGMENT RBC FLAG 0 (0-99); HEMATOCRIT 28.1 % (40.0-51.0); HEMOGLOBIN 9.4 g/dL (13.7-17.5); LEFT SHIFT FLG 70 (0-99); LIPEMIA HEMOLYSIS FLAG 80 (0-99); MEAN CELL HEMOGLOBIN 28.8 pg (27.9-34.1); MEAN CELL HEMOGLOBIN CONCENTR. 33.5 g/dL (32.4-36.7); MEAN CELL VOLUME 86.2 fL (81.5-99.8); MEAN PLATELET VOLUME 10.4 fL (8.7-11.7); PLATELET CLUMPS FLAG 20 (0-99); PLATELET COUNT 97 10^3/uL (150-400); RED BLOOD CELL COUNT 3.26 10^6/uL (4.40-6.38); RED CELL DISTRIBUTION WIDTH 13.4 % (11.5-15.2)
[2017-03-14 05:13] LABS: ANION GAP 10 mEq/L (8-16); CALCIUM 8.1 mg/dL (8.5-10.4); CARBON DIOXIDE 21 mEq/l (22-31); CHLORIDE 111 mEq/L (97-110); CREATININE 0.7 mg/dL (0.7-1.3); GLOMERULAR FILTRATION RATE > 60; GLUCOSE 103 mg/dL (70-100); POTASSIUM 4.4 mEq/L (3.5-5.2); SODIUM 142 mEq/L (134-144)
[2017-03-14] MEDS: ceFAZolin 2 GM/DEXTROSE 100 ML IV SCH ×3 (05:45→22:09)
--- NOTE | 2017-03-14 06:45 | SOAPPROG ---
SOAP Progress Note Assessment/Plan: Assessment: POD1 s/p CABG x 4 (bilat CARRILLO's), mitral valve repair with #32 annuloplasty ring, ligation of left atrial appendage Severe 3V CAD s/p CABG x 4. On ASA. Will resume Lipitor. No BB or ACEi d/t borderline hypotension. Severe mitral valve regurgitation s/p mitral valve repair. On ASA. Respiratory insufficiency stable. Tolerating extubation, currently on 2L NC with adequate O2 sats. Acute postop blood loss anemia stable with H&H 9.4/28.1 (9.2/27). Will check CBC in am. Secondary thrombocytopenia d/t CPB with plt count 97. No Lovenox/subQ Heparin. Renal function stable with normal renal lytes and good urine output. Keep richardson today for accurate I&O's. Diabetes mellitus poorly controlled preop with HgA1c 11.2. Currently on insulin gtt. Will start Metformin today. Hyperlipidemia stable. Will resume Lipitor. Poor dentition will keep patient on abx until Thursday. Pain control poor. Will give Toradol 30mg IV x 1 and switch to Percocet. Chest tube output 740mls/12hrs, 1040mls/24hrs. No airleak appreciated this am. Will keep chest tubes in place for today. Deconditioning s/p surgery. PT/OT. Encourage ambulation/IS. Plan: Start Metformin 500mg po BID Keep in ICU while on insulin gtt. D/c Chanelle Heplock IV Keep pacing wires AM labs 03/14/17 08:59 Subjective: "I'm really thirsty." Patient reports poor pain control. Objective: Vital Signs Temp Pulse Resp BP Pulse Ox 37.4 C 88 16 112/55 L 99 03/14/17 06:00 03/14/17 06:00 03/14/17 06:00 03/14/17 06:00 03/14/17 06:00 Laboratory Results 03/14/17 04:45 03/14/17 04:45 03/13/17 03/14/17 03/15/17 05:59 05:59 05:59 Intake Total 1863.2 1651 Output Total 2605 Balance 1863.2 -954 PT 12.8 SEC (12.0-15.0) 03/11/17 09:37 INR 0.97 (0.83-1.16) 03/11/17 09:37 Physical Exam - Physical Exam General Appearance: WD/WN, alert, no apparent distress Respiratory: lungs clear, decreased breath sounds (bases) Cardiac/Chest: regular rate, rhythm, other (sternum stable, sternotomy c/d/i) Abdomen: normal bowel sounds, non-tender, soft, other (non-distended) Skin: warm/dry Extremities: other (warm, no lower extremity edema, left leg incisions c/d/i) Neuro/Psych: alert, normal mood/affect, oriented x 3 ICD10 Worksheet Patient Problems: Problems Problem Status Onset Bronchitis Acute Dyspnea on exertion Acute
[2017-03-14] MEDS: ALBUMIN 5% 250 ML IV PRN (07:28)
--- NOTE | 2017-03-14 08:00 | SOAPPROG ---
SOAP Progress Note Assessment/Plan: Assessment: Plan: Subjective: Afebrile BP 90 syst p=[address] 1040cc since OR Good UO Hct 27% BMP nl Lungs clear Cor RRR Up in chair. Mod pain Glucose well controlled Plan - start Metformin and cont IV insulin for now. Objective: Vital Signs Temp Pulse Resp BP Pulse Ox 37.4 C 88 16 112/55 L 99 03/14/17 06:00 03/14/17 06:00 03/14/17 06:00 03/14/17 06:00 03/14/17 06:00 Laboratory Results 03/14/17 04:45 03/14/17 04:45 03/13/17 03/14/17 03/15/17 05:59 05:59 05:59 Intake Total 1863.2 1651 Output Total 2605 Balance 1863.2 -954 PT 12.8 SEC (12.0-15.0) 03/11/17 09:37 INR 0.97 (0.83-1.16) 03/11/17 09:37 ICD10 Worksheet Patient Problems: Problems Problem Status Onset Bronchitis Acute Dyspnea on exertion Acute
[2017-03-14] MEDS ORDERED: KETOROLAC 30 MG/1 ML SDV ONE (08:23)
[2017-03-14] MEDS ORDERED: KETOROLAC 30 MG/1 ML SDV IVP ONE (08:23)
[2017-03-14] MEDS ORDERED: OXYCODONE/APAP 5/325 TAB ONE (08:24)
[2017-03-14] MEDS ORDERED: ASPIRIN 81 MG CHEWABLE TAB TUBE PRN (09:00)
[2017-03-14] MEDS: ASPIRIN 81 MG CHEWABLE TAB PO SCH (09:24)
[2017-03-14] MEDS: PANTOPRAZOLE SODIUM 40 MG TAB PO SCH (09:24)
[2017-03-14] MEDS: SENNOSIDES/DOCUSATE SODIUM TAB PO SCH ×2 (09:24→20:57)
[2017-03-14] MEDS: MUPIROCIN 2% 22 GM OINT NS SCH ×2 (09:29→22:08)
[2017-03-14] MEDS: metFORMIN HCL 500 MG TAB PO SCH ×2 (09:30→18:26)
[2017-03-14] MEDS: OXYCODONE/APAP 5/325 TAB PO PRN ×4 (10:32→20:43)
[2017-03-14] MEDS ORDERED: IPRATROPIUM/ALBUTEROL 3 ML DEYVIAL IH PRN (12:54)
--- NOTE | 2017-03-14 14:16 | GCON ---
[f rep st] CONSULTATION PULMONARY CONSULTATION DATE OF CONSULTATION: 03/14/2017 REASON FOR CONSULTATION: Intensive care unit evaluation and medical management following open heart surgery. HISTORY: The patient is a 41-year-old, diabetic. He was recently hospitalized with an inferior late ral myocardial infarction, and was found to have severe 3 vessel coronary artery disease. He was kep t in the hospital, awaiting surgery. A 4-vessel coronary artery bypass grafting was done yesterday u sing saphenous vein grafts and bilateral internal mammary arteries. He also had a mitral valve repai r for mitral insufficiency. Surgery went well. He was extubated in the intensive care unit postoper atively without significant difficulty. He has done well since extubation. He is on 2 L of oxygen, complaining of some anterior chest discomfort as expected. Chest and mediastinal tubes remain in moise ce. He does have a history of ongoing tobacco abuse, smoking approximately 1 pack of cigarettes per day, since his late teens. His diabetes has been poorly controlled. He was not taking any medications fo r this. There is a history of hyperlipidemia. PAST MEDICAL HISTORY: As stated above, diabetes mellitus, ongoing tobacco abuse, hyperlipidemia, cor onary artery disease. DRUG ALLERGIES: None known. SOCIAL HISTORY: The patient lives alone. 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 Significant alcohol is negative. Tobacco is as outlined above. FAMILY HISTORY: Positive for diabetes. REVIEW OF SYSTEMS: He complains of some mild pulmonary congestion. He does not use any inhalers at home. There is no history of thromboembolic disease, renal disease, significant GI disease, etc. A 10 point review of systems is otherwise negative. He has had some nausea and a small amount of emesi s postoperatively. PHYSICAL EXAMINATION: GENERAL: Reveals a pleasant gentleman, who appears to be resting comfortably in bed. VITAL SIGNS: Blood pressure is 110/66, heart rate 95 with sinus rhythm on the monitor. Res piratory rate is 20. On 2 L saturations are 99%. He is afebrile. HEENT: Unremarkable for lymphade nopathy or thyromegaly. There is no jugular venous distention. Pupils are equal. Mucous membranes are moist. CHEST: Clear anteriorly. Breath sounds are diminished at the bases. A few rales are pr esent bilaterally, left greater than right. There are no rhonchi. HEART: Regular in rate and rhyth m. There is a soft systolic murmur. Sternotomy appears clean. ABDOMEN: Soft, nontender. Bowel so unds are present, but diminished. A Moore catheter is in place. Mediastinal/chest tubes are also in place. NEUROLOGIC: Is within normal limits, nonfocal. Mentation is intact. DATABASE: Chest x-ray shows minimal bibasilar atelectasis, primarily at the left base. There is no evidence of congestive heart failure. Full cardiac silhouette is enlarged. Lines and tubes are in a ppropriate position. [place]ATORY: [place] [address], hematocrit 27, platelets 97,000. Basic metabolic panel is within normal limits. Glucoses are in the 100 to 140 range on an insulin drip. ASSESSMENT: 1. Coronary artery disease, status post 4 vessel coronary artery bypass grafting, and mitral valve r epair. He is doing well postoperatively. Immediate plans per cardiovascular surgery. 2. Acute blood-loss anemia: Hematocrit currently 27. H and H will be followed. Blood will be give n if needed. 3. Tobacco abuse, possible underlying mild chronic obstructive pulmonary disease/reactive airways di sease. He does have some congestion postoperatively. DuoNeb will be added to his regimen. Pulmonar y evaluation after he recovers from his open heart surgery as an outpatient will be recommended. Smo chet cessation is encouraged. 4. Diabetes. This apparently has been poorly controlled. Hemoglobin A1c on admission was 11, with estimated average glucoses of 275. He is on an insulin drip currently, with blood glucoses well cont rolled. This will be transitioned to sliding scale coverage after 24 hours postop. It is unclear wh at he will require. 5. History of hyperlipidemia. PLAN AND RECOMMENDATIONS: The patient will be kept in the intensive care unit. DuoNeb will be added to his regimen on a p.r.n. basis. Laboratory and chest x-ray will be followed. Incentive spirometr y will be encouraged. Smoking cessation encouraged. Outpatient pulmonary followup recommended. He has no primary care physician at the current time, and will need one post discharge. Further plans and recommendations will be made based on his progress over the next 12-24 hours. /[id number]/MODL
--- NOTE | 2017-03-14 15:18 | HOSPPROG ---
Hospitalist Progress Note Assessment/Plan: * Uncontrolled DM - HgA1c 11.2 -post CABG IV insulin gtt per ICU protocol -increase lantus 26 units daily when off gtt -mealtime lispro 6 ac -continue metformin * CAD s/p CABG -per CT surgery Subjective: No new complaints. Objective: Vital Signs Temp Pulse Resp BP Pulse Ox 36.2 C 96 27 H 104/55 L 98 03/14/17 12:00 03/14/17 15:00 03/14/17 15:00 03/14/17 15:00 03/14/17 15:00 Laboratory Results 03/14/17 04:45 03/14/17 13:20 03/13/17 03/14/17 03/15/17 05:59 05:59 05:59 Intake Total 1863.2 1651 400 Output Total 2605 1155 Balance 1863.2 -954 -755 PT 12.8 SEC (12.0-15.0) 03/11/17 09:37 INR 0.97 (0.83-1.16) 03/11/17 09:37 d/w Dr. Quinton Ferrell regarding ICU diabetes plan - Physical Exam Constitutional: no apparent distress, appears nourished, not in pain Cardiovascular: regular rate and rhythym, no murmur, rub, or gallop Respiratory: no respiratory distress, no rales or rhonchi, clear to auscultation Gastrointestinal: normoactive bowel sounds, soft, non-tender abdomen, no palpable masses Skin: no rashes or abrasions, no fluctuance, no induration Neurologic: AAOx3, sensation intact bilaterally Psychiatric: interacting appropriately, not anxious, not encephalopathic, thought process linear ICD10 Worksheet Patient Problems: Problems Problem Status Onset Mitral valve insufficiency Acute S/P CABG x 4 Acute S/P mitral valve repair Acute CAD (coronary artery disease) Chronic Diabetes Chronic Stented coronary artery Chronic Bronchitis Acute Dyspnea on exertion Acute
[2017-03-14] MEDS ORDERED: FUROSEMIDE 40 MG/4 ML VIAL ONE (16:26)
[2017-03-14] MEDS ORDERED: FUROSEMIDE 40 MG/4 ML VIAL IVP ONE (16:30)
[2017-03-14] MEDS ORDERED: D50W 25 GM/50 ML SYR IVP PRN (18:14)
[2017-03-14] MEDS ORDERED: INSULIN GLARGINE 100 UNITS/ML SYRINGE SC SCH (18:15)
[2017-03-14 19:07] LABS: POTASSIUM 4.1 mEq/L (3.5-5.2)
[2017-03-14] MEDS: INSULIN REGULAR HUMAN 100 UNIT/ML SC SCH (20:56)
[2017-03-15] MEDS: OXYCODONE/APAP 5/325 TAB PO PRN ×6 (00:51→21:15)
[2017-03-15] MEDS: CEPACOL LOZENGE PO PRN ×2 (00:53→05:31)
[2017-03-15] MEDS: ceFAZolin 2 GM/DEXTROSE 100 ML IV SCH ×3 (05:31→21:16)
[2017-03-15 05:46] LABS: % IMMATURE GRANULYOCYTES 0.5 % (0.0-1.1); ABSOLUTE IMMATURE GRANULOCYTES 0.06 10^3/uL (0.00-0.10); ADD DIFF? NO; ADD MORPH? NO; ADD SCAN? NO; ATYPICAL LYMPHOCYTE FLAG 30 (0-99); FRAGMENT RBC FLAG 0 (0-99); HEMATOCRIT 25.4 % (40.0-51.0); HEMOGLOBIN 8.5 g/dL (13.7-17.5); LEFT SHIFT FLG 20 (0-99); LIPEMIA HEMOLYSIS FLAG 80 (0-99); MEAN CELL HEMOGLOBIN 29.5 pg (27.9-34.1); MEAN CELL HEMOGLOBIN CONCENTR. 33.5 g/dL (32.4-36.7); MEAN CELL VOLUME 88.2 fL (81.5-99.8); MEAN PLATELET VOLUME 10.2 fL (8.7-11.7); PLATELET CLUMPS FLAG 0 (0-99); PLATELET COUNT 79 10^3/uL (150-400); RED BLOOD CELL COUNT 2.88 10^6/uL (4.40-6.38); RED CELL DISTRIBUTION WIDTH 13.6 % (11.5-15.2)
[2017-03-15 05:57] LABS: ANION GAP 8 mEq/L (8-16); CALCIUM 8.3 mg/dL (8.5-10.4); CARBON DIOXIDE 22 mEq/l (22-31); CHLORIDE 100 mEq/L (97-110); CREATININE 0.8 mg/dL (0.7-1.3); GLOMERULAR FILTRATION RATE > 60; GLUCOSE 180 mg/dL (70-100); POTASSIUM 4.2 mEq/L (3.5-5.2); SODIUM 130 mEq/L (134-144)
--- NOTE | 2017-03-15 06:55 | SOAPPROG ---
SOAP Progress Note Assessment/Plan: Assessment: POD2 s/p CABG x 4 (bilat CARRILLO's), mitral valve repair with #32 annuloplasty ring, ligation of left atrial appendage Severe 3V CAD s/p CABG x 4. On ASA and Lipitor. Will start BB today. No ACEi to avoid hypotension. Severe mitral valve regurgitation s/p mitral valve repair. On ASA. Respiratory insufficiency stable. Currently on room air with adequate O2 sats. Acute postop blood loss anemia with H&H 8.5/25.4 (9.4/28.1). Will check another CBC in am. Secondary thrombocytopenia d/t CPB worsening with plt count 79 (97). No Lovenox /subQ Heparin. Renal function stable with normal renal lytes and good urine output. Diabetes mellitus poorly controlled preop with HgA1c 11.2. Off insulin gtt, on Metformin, Lantus and SSI. Will increase Metformin today. Appreciate Hospitalist recommendations. Hyperlipidemia stable. On Lipitor. Poor dentition will keep patient on abx until Thursday. Pain control adequate, on Percocet. Chest tube output 130mls/12hrs, 505mls/24hrs. No airleak appreciated this am. Will d/c chest tubes today. Deconditioning s/p surgery. Continue PT/OT. Encourage ambulation/IS. Plan: Increase Metformin to 1000mg po BID. Start po Amio. Start Metoprolol. Start Lasix. D/c PIV. D/c pacing wires. D/c chest tubes. AM labs Subjective: Patient complains of left irwin pain as well as shoulderblade and back pain. He does note good pain control when he takes Percocet though. Objective: Vital Signs Temp Pulse Resp BP Pulse Ox 36.7 C 94 26 H 117/70 97 03/15/17 06:00 03/15/17 06:00 03/15/17 06:00 03/15/17 06:00 03/15/17 06:00 Laboratory Results 03/15/17 05:30 03/15/17 05:30 03/14/17 03/15/17 03/16/17 05:59 05:59 05:59 Intake Total 1651 1814 Output Total 2605 2565 Balance -954 -751 PT 12.8 SEC (12.0-15.0) 03/11/17 09:37 INR 0.97 (0.83-1.16) 03/11/17 09:37 Physical Exam - Physical Exam General Appearance: WD/WN, alert, no apparent distress Respiratory: lungs clear, decreased breath sounds Cardiac/Chest: regular rate, rhythm, other (Sternum stable, sternotomy c/d/i) Abdomen: normal bowel sounds, non-tender, soft (non-distended) Skin: warm/dry Extremities: other (mild lower extremity edema bilaterally) ICD10 Worksheet Patient Problems: Problems Problem Status Onset Mitral valve insufficiency Acute S/P CABG x 4 Acute S/P mitral valve repair Acute CAD (coronary artery disease) Chronic Diabetes Chronic Stented coronary artery Chronic Bronchitis Acute Dyspnea on exertion Acute
--- NOTE | 2017-03-15 07:47 | SOAPPROG ---
SOAP Progress Note Assessment/Plan: Assessment: Plan: Subjective: Afebrile VSS Good uo Weight 3kg up over preop CT 550cc/24hr. Minimal last 12 Hct 25.4% BMP OK Lungs clear Cor RRR Wound clean c/o ant tibial burning pain Plan - Lasix, transfer, dc tubes Objective: Vital Signs Temp Pulse Resp BP Pulse Ox 36.7 C 94 26 H 117/70 97 03/15/17 06:00 03/15/17 06:00 03/15/17 06:00 03/15/17 06:00 03/15/17 06:00 Laboratory Results 03/15/17 05:30 03/15/17 05:30 03/14/17 03/15/17 03/16/17 05:59 05:59 05:59 Intake Total 1651 1814 Output Total 2601 2565 Balance -954 -671 PT 12.8 SEC (12.0-15.0) 03/11/17 09:37 INR 0.97 (0.83-1.16) 03/11/17 09:37 ICD10 Worksheet Patient Problems: Problems Problem Status Onset Mitral valve insufficiency Acute S/P CABG x 4 Acute S/P mitral valve repair Acute CAD (coronary artery disease) Chronic Diabetes Chronic Stented coronary artery Chronic Bronchitis Acute Dyspnea on exertion Acute
[2017-03-15] MEDS: metFORMIN HCL 500 MG TAB PO SCH ×3 (07:58→17:02)
[2017-03-15] MEDS: INSULIN REGULAR HUMAN 100 UNIT/ML SC SCH ×4 (07:58→21:16)
[2017-03-15] MEDS: AMIODARONE HCL 200 MG TAB PO SCH ×2 (08:47→21:16)
[2017-03-15] MEDS: SENNOSIDES/DOCUSATE SODIUM TAB PO SCH ×2 (08:47→21:15)
[2017-03-15] MEDS: FUROSEMIDE 40 MG/4 ML VIAL IVP SCH ×2 (08:47→10:28)
[2017-03-15] MEDS: PANTOPRAZOLE SODIUM 40 MG TAB PO SCH (08:48)
[2017-03-15] MEDS: POTASSIUM CL 20 MEQ TAB PO SCH (08:48)
[2017-03-15] MEDS: ASPIRIN 81 MG CHEWABLE TAB PO SCH (08:52)
[2017-03-15] MEDS ORDERED: LACTULOSE 20 GM/30 ML UDCUP PO PRN (09:38)
[2017-03-15] MEDS ORDERED: ACETAMINOPHEN 325 MG TAB PO PRN (09:38)
[2017-03-15] MEDS: ATORVASTATIN CALCIUM 40 MG TAB PO SCH (11:23)
[2017-03-15] MEDS: METOPROLOL TARTRATE 50 MG TAB PO SCH ×2 (11:23→21:15)
--- NOTE | 2017-03-15 13:52 | PDINTPN ---
Natural Resource Economist Progress Note Assessment/Plan: Assessment: Status post open heart surgery: CABG x4, mitral valve repair. Doing well postoperatively. Hemodynamics stable. Remains edematous. Diabetes mellitus: On insulin by sliding scale and Lantus. Starting to eat. Glucoses higher, 250 range. Will increase insulin. Tobacco abuse: Possible mild COPD. However, doing fine on room air, without wheezing. On p.r.n. bronchodilators. Left lower extremity pain: Per cardiovascular surgery. [place] to be possibly neurologic. No evidence for DVT clinically. Follow. Acute blood-loss anemia: Hematocrit 28. No ongoing active bleeding. Follow H& H. DVT prophylaxis: SCDs, aspirin. Consider subcu heparin. Per [facility]. GI prophylaxis: Pantoprazole. Metabolic: Hyponatremia, sodium 130. Follow. Plan: Continue postoperative care per cardiovascular surgery. Transfer to PCU today. Lasix diuresis. Follow laboratory including hemoglobin and hematocrit, sodium, glucoses, etc. Increase mobilization as tolerated. I will sign off at this point. I would be happy to see the patient back in the office for his pulmonary status, tobacco abuse, etc if he is willing. Subjective: Doing okay. Complains of pain when standing related to the left anterior calf, sternal pain. Objective: Vital Signs Temp Pulse Resp BP Pulse Ox 36.8 C 100 18 121/79 H 92 03/15/17 11:52 03/15/17 11:52 03/15/17 11:52 03/15/17 11:52 03/15/17 11:52 Laboratory Results 03/15/17 05:30 03/15/17 05:30 03/14/17 03/15/17 03/16/17 05:59 05:59 05:59 Intake Total 1651 1814 400 Output Total 2605 2565 Balance -954 -751 400 PT 12.8 SEC (12.0-15.0) 03/11/17 09:37 INR 0.97 (0.83-1.16) 03/11/17 09:37 Laboratory Tests 03/14/17 03/15/17 03/15/17 20:43 05:30 11:00 POC Glucose 189 H 234 H Calcium 8.3 L Magnesium 2.0 Physical Exam - Physical Exam General Appearance: alert, mild distress (Discomfort) EENT: PERRL/EOMI, other (On room air: 92%) Neck: normal inspection (No jugular venous distention) Respiratory: lungs clear (Anteriorly), decreased breath sounds (At bases), rales (Few rales present at bases) Cardiac/Chest: regular rate, rhythm, friction rub (Pleural pericardial rub present) Abdomen: normal bowel sounds, non-tender, soft Male Genitalia: other (Fole cateter out) Skin: warm/dry, pallor Extremities: pedal edema (2++Tight edema lower extremities bilaterally. Tender just to the left of the anterior tibia on the left. Saphenous vein site looks fine, without cellulitis. No cords, no induration) Neuro/Psych: no motor/sensory deficits (Moves all extremities equally), No cognition abnormalities ICD10 Worksheet Patient Problems: Problems Problem Status Onset Mitral valve insufficiency Acute S/P CABG x 4 Acute S/P mitral valve repair Acute CAD (coronary artery disease) Chronic Diabetes Chronic Stented coronary artery Chronic Bronchitis Acute Dyspnea on exertion Acute
[2017-03-15] MEDS ORDERED: INSULIN GLARGINE 100 UNITS/ML SYRINGE SC SCH (13:57)
[2017-03-15] MEDS ORDERED: D10W 250 ML PRN HYPOGLYCEMIA IV (14:00)
--- NOTE | 2017-03-15 14:35 | HOSPPROG ---
Hospitalist Progress Note Assessment/Plan: * Uncontrolled DM - HgA1c 11.2 -new to insulin - plan home on Lantus -continue metformin * CAD s/p CABG -per CT surgery * Obesity BMI 34 Subjective: No complaints. Objective: Vital Signs Temp Pulse Resp BP Pulse Ox 36.8 C 100 18 121/79 H 92 03/15/17 11:52 03/15/17 11:52 03/15/17 11:52 03/15/17 11:52 03/15/17 11:52 Laboratory Results 03/15/17 05:30 03/15/17 05:30 03/14/17 03/15/17 03/16/17 05:59 05:59 05:59 Intake Total 1651 1814 400 Output Total 2605 2565 Balance -954 -751 400 PT 12.8 SEC (12.0-15.0) 03/11/17 09:37 INR 0.97 (0.83-1.16) 03/11/17 09:37 - Physical Exam Constitutional: no apparent distress, appears nourished, not in pain Cardiovascular: regular rate and rhythym, no murmur, rub, or gallop Respiratory: no respiratory distress, no rales or rhonchi, clear to auscultation Gastrointestinal: normoactive bowel sounds, soft, non-tender abdomen, no palpable masses Skin: no rashes or abrasions, no fluctuance, no induration Neurologic: AAOx3, sensation intact bilaterally Psychiatric: interacting appropriately, not anxious, not encephalopathic, thought process linear ICD10 Worksheet Patient Problems: Problems Problem Status Onset Mitral valve insufficiency Acute S/P CABG x 4 Acute S/P mitral valve repair Acute CAD (coronary artery disease) Chronic Diabetes Chronic Stented coronary artery Chronic Bronchitis Acute Dyspnea on exertion Acute
[2017-03-16] MEDS: OXYCODONE/APAP 5/325 TAB PO PRN ×3 (05:22→23:15)
[2017-03-16] MEDS: ceFAZolin 2 GM/DEXTROSE 100 ML IV SCH (05:23)
[2017-03-16 05:38] LABS: % IMMATURE GRANULYOCYTES 0.4 % (0.0-1.1); ABSOLUTE IMMATURE GRANULOCYTES 0.04 10^3/uL (0.00-0.10); ADD DIFF? NO; ADD MORPH? NO; ADD SCAN? NO; ATYPICAL LYMPHOCYTE FLAG 30 (0-99); FRAGMENT RBC FLAG 0 (0-99); HEMOGLOBIN 8.4 g/dL (13.7-17.5); LEFT SHIFT FLG 20 (0-99); LIPEMIA HEMOLYSIS FLAG 80 (0-99); MEAN CELL HEMOGLOBIN 29.1 pg (27.9-34.1); MEAN CELL HEMOGLOBIN CONCENTR. 33.6 g/dL (32.4-36.7); MEAN CELL VOLUME 86.5 fL (81.5-99.8); MEAN PLATELET VOLUME 10.4 fL (8.7-11.7); PLATELET CLUMPS FLAG 20 (0-99); PLATELET COUNT 98 10^3/uL (150-400); RED BLOOD CELL COUNT 2.89 10^6/uL (4.40-6.38); RED CELL DISTRIBUTION WIDTH 13.4 % (11.5-15.2)
[2017-03-16 05:58] LABS: ANION GAP 8 mEq/L (8-16); CALCIUM 8.2 mg/dL (8.5-10.4); CARBON DIOXIDE 23 mEq/l (22-31); CHLORIDE 100 mEq/L (97-110); CREATININE 0.8 mg/dL (0.7-1.3); GLOMERULAR FILTRATION RATE > 60; GLUCOSE 200 mg/dL (70-100); POTASSIUM 4.3 mEq/L (3.5-5.2); SODIUM 131 mEq/L (134-144)
--- NOTE | 2017-03-16 07:33 | SOAPPROG ---
SONAE Progress Note Assessment/Plan: POD #3: CABGx4 (skeletonized NATH-LAD, skeletonized IVA-RCA, SVG-trif, SVG-OM) , MV repair with #32 Physio ring, ligation left atrial appendage Severe 3VD s/p CABGx4 - Continue BB/ASA/statin for secondary prevention - Amiodarone for AF prophylaxis - SCDs alone for DVT prophylaxis - All tubes and wires out Severe MR s/p MV repair with #32 Physio ring - ASA alone for thromboprophylaxis Acute blood loss anemia - Stable without the need for blood product transfusions Acute on chronic systolic and diastolic CHF, class II - Continue Lasix for fluid overload (102 kg today / 100 kg pre-op) - Consider ACEi if BP tolerates DM, poorly controlled (A1c 11.32) - On nightly Lantus and Metformin with recent BS range 234-278 - Continue consistent carb diet, further medicine changes as per IM Recent tobacco abuse - Will offer cessation aids Subjective: Overall feels better than yesterday. Pain well-tolerated with PO narcotics. Coughing quite a bit. Still has left pre-tibial pain although better than yesterday. Denies calf pain. Objective: Vital Signs Temp Pulse Resp BP Pulse Ox 36.8 C 74 8 L 107/63 99 03/16/17 05:27 03/16/17 05:27 03/16/17 05:27 03/16/17 05:27 03/16/17 05:27 Laboratory Results 03/16/17 05:15 03/16/17 05:15 03/15/17 03/16/17 03/17/17 05:59 05:59 05:59 Intake Total 1814 1375 Output Total 2565 1350 Balance -751 25 PT 12.8 SEC (12.0-15.0) 03/11/17 09:37 INR 0.97 (0.83-1.16) 03/11/17 09:37 Physical Exam - Physical Exam General Appearance: WD/WN, alert, no apparent distress, obese EENT: No scleral icterus (R), No scleral icterus (L) Neck: normal inspection Respiratory: lungs clear, No respiratory distress Cardiac/Chest: regular rate, rhythm Abdomen: non-tender, soft, distended Skin: normal color, warm/dry Extremities: pedal edema, No calf tenderness Neuro/Psych: no motor/sensory deficits, alert, normal mood/affect, oriented x 3 ICD10 Worksheet Patient Problems: Problems Problem Status Onset Mitral valve insufficiency Acute S/P CABG x 4 Acute S/P mitral valve repair Acute Tobacco abuse Acute CAD (coronary artery disease) Chronic Diabetes Chronic Stented coronary artery Chronic Bronchitis Acute Dyspnea on exertion Acute
[2017-03-16] MEDS ORDERED: NEOMY SULF/BACITRAC ZN/POLY 30 GM OINTTUBE TP SCH (09:00)
[2017-03-16] MEDS: metFORMIN HCL 500 MG TAB PO SCH ×2 (10:02→18:28)
[2017-03-16] MEDS: ATORVASTATIN CALCIUM 40 MG TAB PO SCH (10:02)
[2017-03-16] MEDS: POTASSIUM CL 20 MEQ TAB PO SCH (10:03)
[2017-03-16] MEDS: METOPROLOL TARTRATE 50 MG TAB PO SCH ×2 (10:03→21:15)
[2017-03-16] MEDS: AMIODARONE HCL 200 MG TAB PO SCH ×2 (10:03→21:15)
[2017-03-16] MEDS: PANTOPRAZOLE SODIUM 40 MG TAB PO SCH (10:04)
[2017-03-16] MEDS: SENNOSIDES/DOCUSATE SODIUM TAB PO SCH ×2 (10:05→21:15)
[2017-03-16] MEDS: ASPIRIN 81 MG CHEWABLE TAB PO SCH (10:05)
[2017-03-16] MEDS: FUROSEMIDE 40 MG/4 ML VIAL IVP SCH (10:06)
[2017-03-16] MEDS: INSULIN REGULAR HUMAN 100 UNIT/ML SC SCH ×4 (10:07→21:25)
--- NOTE | 2017-03-16 15:32 | ASMTCMCOM ---
CM Note CM Note Notes: 03/16/2017 Case Management Note: Met w/huc, see huc notes. Recommending Meals on Wheels at discharge. Arranged [facility] district home economics agent and PT for diabetes management and support for post op recovery. Pt needs referral to [facility]. Case Management to provide at d/c. Case management d/c poc: Home w/Home Health care focusing on managing blood glucose levels. Cardiac Rehab to start at a later date. Case management to follow. 03/12/2017 CM Note Chart reviewed, pt is a 41 y/o man admitted w/ ischemic cardiomyopathy. Pt will have an open heart tomorrow. Pt will most likely be transferred to the ICU today for insulin drip. Pt will most likely discharge w/ cardiac rehab and independent when medically stable. CM available if there are needs. Date Signed: 03/16/2017 03:31 PM Electronically Signed By:Angely Anthony RN
--- NOTE | 2017-03-16 16:44 | HOSPPROG ---
Hospitalist Progress Note Assessment/Plan: * Uncontrolled DM - HgA1c 11.2 -new to insulin - plan home on Lantus -continue metformin * CAD s/p CABG -per CT surgery * Obesity BMI 34 Subjective: Glucose still elevated Objective: Vital Signs Temp Pulse Resp BP Pulse Ox 37.1 C 75 18 99/66 L 95 03/16/17 15:19 03/16/17 15:19 03/16/17 15:19 03/16/17 15:19 03/16/17 15:19 Laboratory Results 03/16/17 05:15 03/16/17 05:15 03/15/17 03/16/17 03/17/17 05:59 05:59 05:59 Intake Total 1814 1375 Output Total 2565 1350 975 Balance -751 25 -975 PT 12.8 SEC (12.0-15.0) 03/11/17 09:37 INR 0.97 (0.83-1.16) 03/11/17 09:37 - Physical Exam Constitutional: no apparent distress, appears nourished, not in pain Cardiovascular: regular rate and rhythym, no murmur, rub, or gallop Respiratory: no respiratory distress, no rales or rhonchi, clear to auscultation Gastrointestinal: normoactive bowel sounds, soft, non-tender abdomen, no palpable masses Skin: no rashes or abrasions, no fluctuance, no induration Neurologic: AAOx3, sensation intact bilaterally Psychiatric: interacting appropriately, not anxious, not encephalopathic, thought process linear ICD10 Worksheet Patient Problems: Problems Problem Status Onset Mitral valve insufficiency Acute S/P CABG x 4 Acute S/P mitral valve repair Acute Tobacco abuse Acute CAD (coronary artery disease) Chronic Diabetes Chronic Stented coronary artery Chronic Bronchitis Acute Dyspnea on exertion Acute
[2017-03-16] MEDS: INSULIN GLARGINE 100 UNITS/ML SYRINGE SC SCH (21:25)
[2017-03-17] MEDS: OXYCODONE/APAP 5/325 TAB PO PRN ×2 (06:24→11:01)
--- NOTE | 2017-03-17 08:29 | SOAPPROG ---
SOAP Progress Note Assessment/Plan: Assessment: POD#4 CABGx4 (skeletonized NATH-LAD, skeletonized IVA-RCA, SVG-trif , SVG-OM), MV repair with #32 Physio ring, ligation left atrial appendage Severe 3VD - s/p CABGx4. Stable early postop course. Tubes and wires out. Secondary prevention with ASA, BB, statin. AF prophylaxis with amiodarone. VTE prophylaxis with SCDS. Ischemic cardiomyopathy with acute on chronic dCHF and MR - Valve competency restored with ring annuloplasty. LV systolic fx unchanged/preserved post revasc. No significant fluid overload. Actively diuresing with stable renal fx. ACEI if sufficient BP. Antithrombotic prophylaxis with ASA alone. Acute expected blood loss anemia - Stable. No transfusions needed. DM2 - Poorly controlled by preop A1c of 11.3%. Periop hyperglycemia managed with insulin gtt. Transition to basal/prandial/SSI and OHAs per IM. Carb consistent diet and diabetic counseling per dietitian. Outpt assistance with meals/insulin injections/accuchecks per [facility]. Recent tobacco abuse - 1 ppd x 25 yrs. Willing to quit. Cessation aids declined for now. Plan: Transition IV to oral Lasix. Cont metoprolol 50 mg BID. Cont inc activity and pulm toilet. Wean O2. Dispo - Anticipate home with [facility] tomorrow. 03/17/17 08:14 Subjective: Sore. 1 percocet wears off within 3 hrs. Good mobility when comfortable. Feels less swollen and donor leg not as tender. Yet to have a BM. Squeamish about giving himself insulin but willing to try. Objective: Vital Signs Temp Pulse Resp BP Pulse Ox 36.9 C 80 16 116/73 99 03/17/17 07:50 03/17/17 07:50 03/17/17 07:50 03/17/17 07:50 03/17/17 07:50 Laboratory Results 03/16/17 05:15 03/16/17 05:15 03/16/17 03/17/17 03/18/17 05:59 05:59 05:59 Intake Total 1375 1350 Output Total 1350 1750 Balance 25 -400 PT 12.8 SEC (12.0-15.0) 03/11/17 09:37 INR 0.97 (0.83-1.16) 03/11/17 09:37 HR and BP controlled. Off O2 yest. Back on overnoc w sats > 98%. Likely does not need. Negative fluid balance x 48h, is within 2 kg of admit wt. FSBGs 160s-180s. - Pending Discharge Pending Discharge Within 24 Hours: Yes Pending Discharge Date: 03/18/17 Pending Discharge Time: 11:00 Physical Exam - Physical Exam General Appearance: alert, mild distress (with movement ) Respiratory: lungs clear Cardiac/Chest: regular rate, rhythm, other (Sternotomy and LLE venotomy CDI) Abdomen: non-tender, soft Skin: warm/dry Extremities: swelling (1+ dependent edema) ICD10 Worksheet Patient Problems: Problems Problem Status Onset Mitral valve insufficiency Acute S/P CABG x 4 Acute S/P mitral valve repair Acute Tobacco abuse Acute CAD (coronary artery disease) Chronic Diabetes Chronic Stented coronary artery Chronic Bronchitis Acute Dyspnea on exertion Acute
[2017-03-17] MEDS: INSULIN REGULAR HUMAN 100 UNIT/ML SC SCH ×4 (10:59→21:55)
[2017-03-17] MEDS: SENNOSIDES/DOCUSATE SODIUM TAB PO SCH (11:00)
[2017-03-17] MEDS: ASPIRIN 81 MG CHEWABLE TAB PO SCH (11:00)
[2017-03-17] MEDS: ATORVASTATIN CALCIUM 40 MG TAB PO SCH (11:00)
[2017-03-17] MEDS: PANTOPRAZOLE SODIUM 40 MG TAB PO SCH (11:00)
[2017-03-17] MEDS: FUROSEMIDE 40 MG TAB PO SCH ×2 (11:00→11:05)
[2017-03-17] MEDS: POTASSIUM CL 20 MEQ TAB PO SCH (11:00)
[2017-03-17] MEDS: METOPROLOL TARTRATE 50 MG TAB PO SCH ×2 (11:01→20:29)
[2017-03-17] MEDS: AMIODARONE HCL 200 MG TAB PO SCH ×2 (11:01→20:29)
[2017-03-17] MEDS: metFORMIN HCL 500 MG TAB PO SCH ×2 (11:06→18:11)
--- NOTE | 2017-03-17 15:49 | HOSPPROG ---
Hospitalist Progress Note Assessment/Plan: * Uncontrolled DM - HgA1c 11.2 -non-compliant with insulin - has been on in past -continue metformin -agreeable to restart insulin, but variable compliance with nursing here -encouraging self administration of insulin here -per CT surgery must have excellent diabetes control to avoid sternal infection -unclear what his barrier are to self care -affect very flat - nursing suspects depression -I asked patient about depression - had adamantly denied -also suspicion for personality disorder or Asperger's - strange affect -consult Maya Nascimento to help clarify barriers to diabetes management -home health being arrange by CM for discharge - he will need ongoing support * CAD s/p CABG -per CT surgery * Obesity BMI 34 Subjective: denies depression, almost got angry at the suggestion. Couldn't tell me why he wasn't taking his insulin prior to admisson. Objective: Vital Signs Temp Pulse Resp BP Pulse Ox 36.7 C 94 16 122/69 H 96 03/17/17 11:58 03/17/17 11:58 03/17/17 11:58 03/17/17 11:58 03/17/17 11:58 Laboratory Results 03/16/17 05:15 03/16/17 05:15 03/16/17 03/17/17 03/18/17 05:59 05:59 05:59 Intake Total 1375 1350 500 Output Total 1350 1750 Balance 25 -400 500 PT 12.8 SEC (12.0-15.0) 03/11/17 09:37 INR 0.97 (0.83-1.16) 03/11/17 09:37 - Physical Exam Constitutional: no apparent distress, appears nourished, not in pain Cardiovascular: regular rate and rhythym, no murmur, rub, or gallop Respiratory: no respiratory distress, no rales or rhonchi, clear to auscultation Gastrointestinal: normoactive bowel sounds, soft, non-tender abdomen, no palpable masses Skin: no rashes or abrasions, no fluctuance, no induration Neurologic: AAOx3, sensation intact bilaterally Psychiatric: thought process linear, depressed, flat affect, agitated, No encephalopathic, No poor insight, No poor judgement, No poor memory ICD10 Worksheet Patient Problems: Problems Problem Status Onset Mitral valve insufficiency Acute S/P CABG x 4 Acute S/P mitral valve repair Acute Tobacco abuse Acute CAD (coronary artery disease) Chronic Diabetes Chronic Stented coronary artery Chronic Bronchitis Acute Dyspnea on exertion Acute
[2017-03-17] MEDS ORDERED: DIPHENOXYLATE/ATROPINE LOMOTIL 1 TAB PO PRN (17:00)
[2017-03-17] MEDS ORDERED: ONDANSETRON 4 MG/2 ML VIAL ONE (17:08)
[2017-03-17] MEDS ORDERED: ONDANSETRON 4 MG/2 ML VIAL IVP PRN (17:29)
[2017-03-17] MEDS ORDERED: ONDANSETRON 4 MG/2 ML VIAL IVP ONE (17:30)
[2017-03-17] MEDS: INSULIN GLARGINE 100 UNITS/ML SYRINGE SC SCH (21:55)
[2017-03-18] MEDS: OXYCODONE/APAP 5/325 TAB PO PRN ×2 (02:37→09:29)
--- NOTE | 2017-03-18 07:52 | SOAPPROG ---
[facility] Progress Note Assessment/Plan: POD #5: CABGx4 (skeletonized NATH-LAD, skeletonized IVA-RCA, SVG-trif, SVG-OM) , MV repair with #32 Physio ring, ligation left atrial appendage Severe 3VD s/p CABGx4 - Continue BB/ASA/statin for secondary prevention - Amiodarone for AF prophylaxis - SCDs alone for DVT prophylaxis - All tubes and wires out Severe MR s/p MV repair with #32 Physio ring - ASA alone for thromboprophylaxis Acute blood loss anemia - Stable without the need for blood product transfusions Acute on chronic systolic and diastolic CHF, class II - Continue Lasix for mild fluid overload (101/5 kg today / 100 kg pre-op) - ACEi deferred d/t BP on low side DM, poorly controlled (A1c 11.32) - On nightly Lantus and Metformin with better BS control - Continue consistent carb diet, further medicine changes as per IM/outpatient [facility] - Pt re-taught how to inject insulin and check BS and feel able to check on his own Recent tobacco abuse - Cessation aids declined, pt very motivated to quit Disposition - Home with self-care with cardiac rehab to start [facility]AC[facility] Subjective: Feels better this morning. Diarrhea has resolved. LLE pain is pretty much resolved. Feels ready to go home. Confident he can check his own BS and administer insulin. Objective: Vital Signs Temp Pulse Resp BP Pulse Ox 36.7 C 74 16 119/67 97 03/18/17 04:00 03/18/17 04:00 03/18/17 04:00 03/18/17 04:00 03/18/17 04:00 Laboratory Results 03/16/17 05:15 03/16/17 05:15 03/17/17 03/18/17 03/19/17 05:59 05:59 05:59 Intake Total 1350 1300 Output Total 1750 Balance -400 1300 PT 12.8 SEC (12.0-15.0) 03/11/17 09:37 INR 0.97 (0.83-1.16) 03/11/17 09:37 Physical Exam - Physical Exam General Appearance: WD/WN, alert, no apparent distress EENT: No scleral icterus (R), No scleral icterus (L) Neck: normal inspection Respiratory: lungs clear, No crackles, No rales, No rhonchi Cardiac/Chest: regular rate, rhythm Abdomen: non-tender, soft, No distended Skin: normal color, warm/dry Extremities: pedal edema Neuro/Psych: no motor/sensory deficits, alert, normal mood/affect, oriented x 3 ICD10 Worksheet Patient Problems: Problems Problem Status Onset Mitral valve insufficiency Acute S/P CABG x 4 Acute S/P mitral valve repair Acute Tobacco abuse Acute CAD (coronary artery disease) Chronic Diabetes Chronic Stented coronary artery Chronic Bronchitis Acute Dyspnea on exertion Acute
[2017-03-18 08:00] VITALS: BP 113/79; PULSE 75; RESP 18; TEMP 98.4; O2SAT 99
[2017-03-18] MEDS: INSULIN REGULAR HUMAN 100 UNIT/ML SC SCH ×2 (08:13→12:13)
--- NOTE | 2017-03-18 09:17 | PDDCSUM ---
Discharge Summary Discharge Summary: ADMISSION DATE: 03/11/17 DISCHARGE DATE: 03/18/17 ADMISSION DX: 1. Severe three-vessel coronary atherosclerotic disease 2. Severe mitral insufficiency 3. Diabetes mellitus, poorly controlled 4. Acute on chronic systolic and diastolic CHF, class II 5. Tobacco abuse DISCHARGE DX: 1. Severe three-vessel coronary atherosclerotic disease 2. Severe mitral insufficiency 3. Diabetes mellitus, poorly controlled 4. Acute on chronic systolic and diastolic CHF, class II 5. Tobacco abuse 6. Acute blood loss anemia PROCEDURES 03/13/17, [place] [place]: 1. CABGx4 (skeletonized NATH-LAD, skeletonized IVA-RCA, SVG-trif, SVG-OM), MV repair with #32 Physio ring, ligation left atrial appendage HOSPITAL COURSE BY PROBLEM LIST 1. Severe three-vessel coronary atherosclerotic disease - stable s/p CABGx4. Secondary prevention with aspirin, beta-jaron, and statin. 2. Severe mitral insufficiency - s/p repair with #32 Physio ring. Aspirin alone for thromboprophylaxis. 3. Diabetes mellitus, poorly controlled - IM consulted for management with adequate control achieved on BID Metformin and nightly Lantus. Pt taught how to administer insulin and check blood sugars. Instructed to check blood sugars at least twice/day and to record values for subsequent follow-up with [facility]. 4. Acute on chronic systolic and diastolic CHF, class II - discharged home 1.5 kg higher than admission weight. Secondary prevention with beta-jaron. Possible future addition of ACEi if BP higher. Pt instructed to record daily weights and consume at most 2 liters of fluids per day. 5. Tobacco abuse - motivated to quit. Cessation aids refused. 6. Acute blood loss anemia - stable without the need for blood product transfusions. CONDITION Good DISPOSITION Home, self-care ACTIVITY Pt was instructed on sternal precautions, activity limitations, and which problems to call [facility] with. Please see Discharge Plan in chart for specifics. D/C MEDICATIONS 1. Aspirin EC [Aspirin EC 81 mg (*)] 81 mg PO DAILY@12 #30 2. Atorvastatin Calcium [Lipitor 40 mg (*)] 40 mg PO DAILY@12 #30 3. Insulin Glargine [Lantus 100 UNITS/ML (*)] 26 units SC HS 4. Metoprolol Tartrate [Lopressor 50 mg (*)] 50 mg PO BID #60 5. metFORMIN HCL [Glucophage 500 mg (*)] 1,000 mg PO BIDMEAL #60 6. oxyCODONE/APAP 5/325 [Percocet 5/325 (*)] 1 - 2 tab PO Q4HRS PRN #40 PENDING STUDIES/LABS 1. CXR prior to surgical follow-up F/U APPOINTMENTS 1. Arnaud Bonilla - 03/24/17, 9:30 AM
[2017-03-18] MEDS: ASPIRIN 81 MG CHEWABLE TAB PO SCH (09:29)
[2017-03-18] MEDS: METOPROLOL TARTRATE 50 MG TAB PO SCH (09:29)
[2017-03-18] MEDS: POTASSIUM CL 20 MEQ TAB PO SCH (09:30)
[2017-03-18] MEDS: metFORMIN HCL 500 MG TAB PO SCH (09:30)
[2017-03-18] MEDS: ATORVASTATIN CALCIUM 40 MG TAB PO SCH (09:30)
[2017-03-18] MEDS: FUROSEMIDE 40 MG TAB PO SCH (09:30)
[2017-03-18] MEDS: PANTOPRAZOLE SODIUM 40 MG TAB PO SCH (09:30)
--- NOTE | 2017-03-18 10:17 | ASMTCMCOM ---
CM Note CM Note Notes: Pt is being discharged today. CM spoke w/ BRADLEY Mortensen regarding d/c POC. Pt will not be continuing w/ HC. CM called [facility] and informed them of this. Pt will go home independent w/ f/u with Dr. Bonilla next Thursday. CM scheduled an appt for him to see his PCP, Dr. Messina at [facility] on 03/23/17 @9:25AM. CM provided taxi voucher for pt. CM is facilitating his medications being filled at [facility]. CM available for changes. Date Signed: 03/18/2017 10:17 AM Electronically Signed By:LEO Maurice
--- NOTE | 2017-03-18 10:26 | PDIAF ---
- Diagnosis Code Status: Full Code - Medication Management Discharge Medications: Medications to Continue on Transfer Aspirin EC [Aspirin EC 81 mg (*)] 81 mg PO DAILY@12 #30 tab 03/18/17 [Last Taken Unknown] Atorvastatin Calcium [Lipitor 40 mg (*)] 40 mg PO DAILY@12 #30 tab 03/18/17 [ Last Taken Unknown] Insulin Glargine [Lantus 100 UNITS/ML (*)] 26 units SC HS #1 ml 03/18/17 [Last Taken Unknown] Metoprolol Tartrate [Lopressor 50 mg (*)] 50 mg PO BID #60 tab 03/18/17 [Last Taken Unknown] metFORMIN HCL [Glucophage 500 mg (*)] 1,000 mg PO BIDMEAL #60 tab 03/18/17 [ Last Taken Unknown] oxyCODONE/APAP 5/325 [Percocet 5/325 (*)] 1 - 2 tab PO Q4HRS PRN #40 tab [Last Taken Unknown] Discharge Medications: Refer to the Discharge Home Medication list for PRN reason. - Orders Diet Recommendation: ADA 1800 consistent carb, fluid restriction (use comment for amount) (2 liters daily ) Diet Texture: Regular Texture Diet - Follow Up Care Current Providers and Referrals: [facility] [Outside] - follow up as scheduled (Dr. Shadia Messina 03/23/17 @ 9:25AM Please bring $2 co-pay, D/C paperwork and med list) Arnaud Bonilla DO [Doctor of Osteopathy] - 03/24/17 9:30 am Marcia Cruz PA [Physician Recruitment Manager] - (Follow up in 6 weeks. Appointment to be established during surgical visit)
--- NOTE | 2017-03-18 15:39 | ASDISCHSUM ---
Discharge Information Plan Status:Home with No Needs Medically Cleared to Leave:03/18/2017 Discharge Date:03/18/2017 01:25 PM CM D/C Disposition:Home, Routine, Self-Care ADT D/C Disposition:Home, Routine, Self-Care Projected Discharge Date:03/18/2017 12:00 AM Transportation at D/C: Discharge Delay Reason: Follow-Up Date:03/18/2017 12:00 AM Discharge Slot: Final Diagnosis: Placement Information Patient Contact Information Contact Name:ARIA Relationship: Address: Home Phone: Work Phone: City: Alternate Phone: State/Zip Code: Email: Financial Information Financial Class: Primary Plan Desc:[employer] [place] Primary Plan Number:[id number] Secondary Plan Desc: Secondary Plan Number: Assessment Information [facility] CM Progress Note CM Note CM Note Notes: Chart reviewed, pt is a 41 y/o man admitted w/ ischemic cardiomyopathy. Pt will have an open heart tomorrow. Pt will most likely be transferred to the ICU today for insulin drip. Pt will most likely discharge w/ cardiac rehab and independent when medically stable. CM available if there are needs. Date Signed: 03/12/2017 03:08 PM Electronically Signed By:LEO Maurice [facility] CM Progress Note CM Note CM Note Notes: 03/16/2017 Case Management Note: Met w/burr picker, see burr picker notes. Recommending Meals on Wheels at discharge. Arranged [facility] home care consultant and PT for diabetes management and support for post op recovery. Pt needs referral to Securities Adviser from [facility] or [facility]. Case Management to provide at d/c. Case management d/c poc: Home w/Home Health care focusing on managing blood glucose levels. Cardiac Rehab to start at a later date. Case management to follow. 03/12/2017 WINNIE Note Chart reviewed, pt is a 41 y/o man admitted w/ ischemic cardiomyopathy. Pt will have an open heart tomorrow. Pt will most likely be transferred to the ICU today for insulin drip. Pt will most likely discharge w/ cardiac rehab and independent when medically stable. CM available if there are needs. Date Signed: 03/16/2017 03:31 PM Electronically Signed By:Angely Anthony RN [facility] CM Progress Note CM Note CM Note Notes: Pt is being discharged today. CM spoke w/ BRADLEY Mortensen regarding d/c POC. Pt will not be continuing w/ [facility]. CM called [facility] and informed them of this. Pt will go home independent w/ f/u with Dr. Bonilla next Thursday. WINNIE scheduled an appt for him to see his PCP, Dr. Messina at [facility] on 03/23/17 @9:25AM. WINNIE provided taxi voucher for pt. WINNIE is facilitating his medications being filled at [facility]. CM available for changes. Date Signed: 03/18/2017 10:17 AM Electronically Signed By:LEO Maurice Intervention Information
== END 2017-03-18 13:25 | disposition home or self-care (01) | DRG 216 ==
LOC: FCATH 08:56 → F2W 12:26 → F2N 03-12 17:23 → F2W 03-15 11:45
PROVIDERS: ADMIT Internal Medicine Cardiovascular Disease; ATTEND Internal Medicine Cardiovascular Disease
PROC: B2151ZZ Fluoroscopy of Left Heart using Low Osmolar Contrast (ICD-10-PCS; 2017-03-11)
PROC: B2111ZZ Fluoroscopy of Multiple Coronary Arteries using Low Osmolar Contrast (ICD-10-PCS; 2017-03-11)
PROC: 4A023N8 Measurement of Cardiac Sampling and Pressure, Bilateral, Percutaneous Approach (ICD-10-PCS; 2017-03-11)
PROC: 02UG0JZ Supplement Mitral Valve with Synthetic Substitute, Open Approach (ICD-10-PCS; principal; 2017-03-13 12:45)
PROC: 06BQ4ZZ Excision of Left Saphenous Vein, Percutaneous Endoscopic Approach (ICD-10-PCS; principal; 2017-03-13 12:45)
PROC: 02100Z9 Bypass Coronary Artery, One Artery from Left Internal Mammary, Open Approach (ICD-10-PCS; principal; 2017-03-13 12:45)
PROC: 021209W Bypass Coronary Artery, Three Arteries from Aorta with Autologous Venous Tissue, Open Approach (ICD-10-PCS; principal; 2017-03-13 12:45)
PROC: 5A1221Z Performance of Cardiac Output, Continuous (ICD-10-PCS; principal; 2017-03-13 12:45)
PROC: 02L70ZK Occlusion of Left Atrial Appendage, Open Approach (ICD-10-PCS; principal; 2017-03-13 12:45)
DX: I25.10 Atherosclerotic heart disease of native coronary artery without angina pectoris (principal); I11.0 Hypertensive heart disease with heart failure; I50.43 Acute on chronic combined systolic (congestive) and diastolic (congestive) heart failure; D62 Acute posthemorrhagic anemia; E78.5 Hyperlipidemia, unspecified; E11.69 Type 2 diabetes mellitus with other specified complication; Z92.0 Personal history of contraception; I34.0 Nonrheumatic mitral (valve) insufficiency; Z79.84 Long term (current) use of oral hypoglycemic drugs; I25.2 Old myocardial infarction; J44.9 Chronic obstructive pulmonary disease, unspecified; E66.9 Obesity, unspecified; Z68.34 Body mass index [BMI] 34.0-34.9, adult; Z95.5 Presence of coronary angioplasty implant and graft
CPT/HCPCS: 82947-QW; 97116-GP; 97161-GP; 97165-GO; 97530-GP; 97535-GO; J0153; J0282; J0461; J0690; J1100; J1265; J1644; J1815; J1885; J1940; J2001; J2060; J2250; J2260; J2370; J2405; J2440; J2704; J2720; J2930; J3010; J7060; P9041; Q9967

== ENCOUNTER → 2017-03-24 | Outpatient (CLI) | payer MEDICAID | LOC: FLAB 09:26 | PROVIDERS: ATTEND Thoracic Surgery (Cardiothoracic Vascular Surgery) | DX: Z95.1 Presence of aortocoronary bypass graft (principal); Z95.4 Presence of other heart-valve replacement; J90 Pleural effusion, not elsewhere classified ==